=== PATIENT | female | born 1930 | race Caucasian/White ===

== ENCOUNTER → 2016-09-18 | Outpatient (CLI) | payer OTHER ==
[~2016-09-18] MED LIST: ACT300 PO; CEPH-571 PO; FLV1 PO; FRRS300 PO; FRS/40 PO; FURO40TA3 PO; KFL500 PO; LNX125 PO; POTA10TA30 PO; PROB1CHW4 PO; PRT40 PO; QSTP PO; TPRSR/25 PO; TPRSR25 PO; VTMB12 PO
[2016-09-18 12:44] LABS: BLOOD UREA NITROGEN 33 mg/dl (7-18); BUN/CREATININE RATIO 23.5 (10-20); CARBON DIOXIDE 30 mmol/L (21-32); CHLORIDE 101 mmol/L (98-107); GLUCOSE 100 mg/dl (70-99); POTASSIUM 3.4 mmol/L (3.5-5.1); SODIUM 141 mmol/L (136-145)
== END | disposition home or self-care (01) ==
LOC: C.LABPVFM 09:25
PROVIDERS: ATTEND Internal Medicine
DX: I50.9 Heart failure, unspecified (principal)

== ENCOUNTER → 2016-09-22 | Outpatient (CLI) | payer OTHER ==
[2016-09-22 17:50] LABS: ALT/SGPT 21 U/L (12-78); AST/SGOT 31 U/L (15-37); BLOOD UREA NITROGEN 28 mg/dl (7-18); BUN/CREATININE RATIO 21.2 (10-20); CALCIUM 8.4 mg/dl (8.5-10.1); CARBON DIOXIDE 30 mmol/L (21-32); CHLORIDE 103 mmol/L (98-107); GLUCOSE 132 mg/dl (70-99); SODIUM 141 mmol/L (136-145)
[2016-09-22 18:01] LABS: ALB/GLOB RATIO 0.5 (0.9-2); ALKALINE PHOSPHATASE 88 U/L (45-117); THYROID STIMULATING HORMONE 0.723 uIu/ml (0.300-4.500)
== END | disposition home or self-care (01) ==
LOC: C.LABPVFM 11:01
PROVIDERS: ATTEND Nurse Practitioner
DX: I50.9 Heart failure, unspecified (principal); N28.9 Disorder of kidney and ureter, unspecified; R94.6 Abnormal results of thyroid function studies

== ENCOUNTER → 2016-10-19 | Outpatient (CLI) | payer OTHER ==
[2016-10-19 17:58] LABS: BASO % 0.2 %; BASO ABS # 0.02 K/uL (0-0.2); COMPLETE YES; EOS % 1.9 %; IG% 0.3 %; LYMPH % 39.2 %; LYMPH ABS # 4.27 K/uL (1.2-3.4); MEAN CELL VOLUME 92.8 fL (80-100); MEAN CORPUSCULAR HEMOGLOBIN 30.8 pg (25-34); MEAN CORPUSCULAR HGB CONC 33.2 g/dl (32-36); MEAN PLATELET VOLUME 12.6 fL (7.4-10.4); MONO % 16.9 %; NEUT % 41.5 %; PLATELET COUNT 205 K/uL (130-400); RED BLOOD COUNT 4.42 M/uL (4.2-5.4); WHITE BLOOD COUNT 10.88 K/uL (4.8-10.8)
[2016-10-19 18:26] LABS: ALT/SGPT 15 U/L (12-78); BLOOD UREA NITROGEN 27 mg/dl (7-18); BUN/CREATININE RATIO 22.3 (10-20); CALCIUM 9.1 mg/dl (8.5-10.1); CARBON DIOXIDE 32 mmol/L (21-32); CHLORIDE 100 mmol/L (98-107); GLUCOSE 94 mg/dl (70-99); POTASSIUM 3.6 mmol/L (3.5-5.1); SODIUM 141 mmol/L (136-145)
[2016-10-19 18:29] LABS: ALB/GLOB RATIO 0.6 (0.9-2); ALKALINE PHOSPHATASE 98 U/L (45-117); AST/SGOT 25 U/L (15-37)
== END | disposition home or self-care (01) ==
LOC: C.LABPVFM 15:42
PROVIDERS: ATTEND Nurse Practitioner
DX: I10 Essential (primary) hypertension (principal); N28.9 Disorder of kidney and ureter, unspecified; D64.9 Anemia, unspecified

== ENCOUNTER → 2017-02-20 | Outpatient (CLI) | payer OTHER ==
[2017-02-20 18:17] LABS: ALT/SGPT 16 U/L (12-78); AST/SGOT 23 U/L (15-37); BLOOD UREA NITROGEN 28 mg/dl (7-18); BUN/CREATININE RATIO 21.9 (10-20); CALCIUM 8.8 mg/dl (8.5-10.1); CARBON DIOXIDE 29 mmol/L (21-32); CHLORIDE 105 mmol/L (98-107); GLUCOSE 89 mg/dl (70-99); POTASSIUM 3.7 mmol/L (3.5-5.1); SODIUM 142 mmol/L (136-145)
[2017-02-20 18:20] LABS: ALB/GLOB RATIO 0.6 (0.9-2); ALKALINE PHOSPHATASE 120 U/L (45-117)
== END | disposition home or self-care (01) ==
LOC: C.LABPVFM 13:19
PROVIDERS: ATTEND Nurse Practitioner
DX: I10 Essential (primary) hypertension (principal); I50.9 Heart failure, unspecified; E87.6 Hypokalemia

== ENCOUNTER → 2017-02-26 | Outpatient (CLI) | payer OTHER ==
[2017-02-27 16:27] LABS: ALBUMIN 3.7 G/DL (3.8-4.8); GAMMA GLOBULIN 2.6 G/DL (0.8-1.7); TOTAL PROTEIN 8.3 G/DL (6.2-8.3)
== END | disposition home or self-care (01) ==
LOC: C.LABPVFM 09:35
PROVIDERS: ATTEND Nurse Practitioner
DX: R77.9 Abnormality of plasma protein, unspecified (principal)

== ENCOUNTER → 2017-03-12 | Outpatient (CLI) | payer OTHER | END | disposition home or self-care (01) | LOC: C.LABPVFM 09:34 | PROVIDERS: ATTEND Internal Medicine Cardiovascular Disease | DX: E78.5 Hyperlipidemia, unspecified (principal) ==

== ENCOUNTER 2017-04-10 11:41 | Inpatient (IN) | payer OTHER ==
[~2017-04-10] VITALS: Ht 160 cm; Wt 61.2 kg
[~2017-04-10 11:41] MED LIST changes: -ACT300 PO; -CEPH-571 PO; -FRS/40 PO; -KFL500 PO; -POTA10TA30 PO; -TPRSR/25 PO
[2017-04-10] MEDS ORDERED: FRS/40 PO (12:38)
[2017-04-10] MEDS ORDERED: POTA10TA30 PO (12:38)
[2017-04-10] MEDS ORDERED: ACT300 PO (12:38)
[2017-04-10] MEDS ORDERED: SODIUM CHLORIDE 0.9% 500ML 500 ML IV STA (13:12)
[2017-04-10] MEDS ORDERED: LEVALBUTEROL 1.25MG/3ML NEB INH STA (13:12)
[2017-04-10] MEDS ORDERED: LEVALBUTEROL 1.25MG/0.5ML NEB INH ONE (13:17)
[2017-04-10 13:34] LABS: BASO % 0.2 %; BASO ABS # 0.02 K/uL (0-0.2); COMPLETE YES; EOS % 0.6 %; HEMATOCRIT 43.1 % (37-47); IG% 0.2 %; INR 1.2 (0.9-1.1); LYMPH % 17.2 %; LYMPH ABS # 1.45 K/uL (1.2-3.4); MEAN CELL VOLUME 105.9 fL (80-100); MEAN CORPUSCULAR HEMOGLOBIN 33.2 pg (25-34); MEAN CORPUSCULAR HGB CONC 31.3 g/dl (32-36); MEAN PLATELET VOLUME 13.2 fL (7.4-10.4); MONO % 19.4 %; NEUT % 62.4 %; PLATELET COUNT 156 K/uL (130-400); PROTHROMBIN TIME (PATIENT) 12.5 SECONDS (9.0-12.0); RED BLOOD COUNT 4.07 M/uL (4.2-5.4); WHITE BLOOD COUNT 8.41 K/uL (4.8-10.8)
--- NOTE | 2017-04-10 13:39 | DIAGNOSTIC IMAGING REPORT ---
CHEST ONE VIEW PORTABLE CLINICAL HISTORY: Slurred speech. Altered mental status. Dyspnea. COMPARISON STUDY: Chest radiograph July 19, 2016. FINDINGS: The patient is rotated. No pneumothorax is present. There are small bilateral pleural effusions. 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 Mild cardiomegaly is unchanged. Interstitial thickening is noted. There is a 2.7 cm nodular opacity projecting over the right lung apex which may be artifactual. IMPRESSION: 1. Interstitial thickening which suggests pulmonary edema. An infectious process could appear similar but is considered less likely. 2. Small bilateral pleural effusions. 3. 2.7 cm nodular opacity projecting over the right upper lung. This is probably artifactual although airspace disease could appear similar. Radiographic follow-up to ensure resolution is recommended. Electronically signed by: Darshan Rollins M.D. 04/10/2017 1:37 PM Dictated Date/Time: 04/10/2017 1:35 PM
[2017-04-10 13:45] LABS: BUN/CREATININE RATIO 25.1 (10-20); CALCIUM 9.1 mg/dl (8.5-10.1); CREATININE 1.5 mg/dl (0.60-1.20); POTASSIUM 3.8 mmol/L (3.5-5.1)
[2017-04-10] MEDS ORDERED: VTMB12 PO (13:48)
--- NOTE | 2017-04-10 13:56 | DIAGNOSTIC IMAGING REPORT ---
HEAD CT NONCONTRAST CT DOSE: 1715.57 mGycm HISTORY: Pt c/o slurred speech TECHNIQUE: Multiaxial CT images of the head were performed without the use of intravenous contrast. Automated exposure control was utilized for this study. A dose lowering technique was utilized adhering to the principles of ALARA. Comparison: Head CT 12/10/2013. Findings: The mastoid air cells are clear. Near-complete opacification and calcifications within the left frontal sinus and left anterior ethmoid air cells. This is similar to the prior study. The calvarium and skull base are intact. There is no mass, hematoma, midline shift, acute infarct. White matter hypodensity is nonspecific but suggestive of microvascular ischemic change. The ventricles and sulci demonstrate mild age-related involutional changes. Impression: No significant change compared to the prior study. No acute intracranial abnormality. Chronic paranasal sinus disease as described above. Electronically signed by: Alejandro Carey M.D. 04/10/2017 1:55 PM Dictated Date/Time: 04/10/2017 1:51 PM
[2017-04-10] MEDS: METOPROLOL TARTRATE 1 MG/ML VIAL IV STA ×2 (13:57→14:40)
[2017-04-10 14:00] LABS: CKMB/CK RATIO 1.6 (0-3.0); THYROID STIMULATING HORMONE 0.954 uIu/ml (0.300-4.500)
--- NOTE | 2017-04-10 14:03 | EMERGENCY ROOM VISIT NOTE ---
History Report prepared by Leandra: Zhao Servin Under the Supervision of: Dr. Jose Marks M.D. First contact with patient: 12:29 Chief Complaint: WEAKNESS Stated Complaint: ALTERED MENTAL STATUS, DYSPNEA Nursing Triage Summary: pt arrives via EMS spouse reports to EMS that pt awoke early this AM at 0600 more dissoriented than normal and slurred speech. took a nap and when awakening again speech was clear, but remained dissoriented . Pt reports to spouse that she does not know where she is , spouse reports this is normal for her but intermittently and this has not cleared up today. History of Present Illness The patient is a 86 year old female who presents to the Emergency Room with complaints of persistent generalized weakness beginning a few days ago. Per , the patient appeared more disoriented than normal upon waking up this morning. He notes that she may have had some slurred speech for the past several days as well. He states that she took a nap after waking up today, and her speech slur seemed to improve after waking up. The patient's states the patient has not been eating well recently. He states that the patient has not been able to urinate much without using Lasix. He states that her urine appears "brown" without Lasix. The patient's states that the patient's stool has appeared "black" as well, she has had abdominal pain, and she was short of breath yesterday. The patient is supposed to wear supplemental oxygen at home, but often does not. She currently denies any shortness of breath, or abdominal pain. She was previously on Coumadin for A-fib, but stopped in February 2016 due to a GI bleed. Source of History: patient, spouse/significant other () Onset: A few days ago Position: other (generalized) Quality: other (weakness) Timing: other (persistent) Associated Symptoms: + SOB (yesterday, resolved), + abdominal pain ( yesterday, resolved), + urinary symptoms ("brown" urine without Lasix) Note: Additional symptoms: resolved speech slur, "black" stool. Review of Systems See HPI for pertinent positives & negatives. A total of 10 systems reviewed and were otherwise negative. Past Medical & Surgical Medical Problems: (1) Anticoagulated on Coumadin (2) Arthritis (3) Atrial fibrillation (4) Atrial fibrillation with RVR (5) Benign Hypertension (6) Clostridium difficile infection (7) Cva (8) GI bleed (9) Healthcare-associated pneumonia (10) Hypertension (11) Jaundice (12) Rectal bleed Surgical Problems: (1) History of appendectomy (2) History of cholecystectomy (3) History of hysterectomy (4) History of splenectomy Family History No pertinent family history Social History Smoking Status: Never Smoker Drug Use: none Marital Status: Housing Status: lives with family Occupation Status: retired Current/Historical Medications Scheduled Cyanocobalamin (Vitamin B-12), 1,000 MCG PO DAILY Digoxin (Digoxin), 0.125 MG PO Q2D@1600 Ferrous Sulfate (Ferrous Sulfate), 325 MG PO QAM Folic Acid (Folic Acid), 1 MG PO QAM Furosemide (Lasix), 40 MG PO DAILY Metoprolol Succinate (Metoprolol Succinate ER), 25 MG PO BID Pantoprazole (Pantoprazole Sodium), 40 MG PO QAM Potassium Chloride (Potassium Chloride Cr), 10 MEQ PO DAILY Probiotic Product (Acidophilus), 1 TAB PO DAILY Ursodiol (Ursodiol), 300 MG PO BID Allergies Coded Allergies: Penicillins (Verified Allergy, Mild, HIVES, 06/27/16) Tetanus Toxoid (Verified Allergy, Mild, FEVR, N/V, 06/27/16) Physical Exam Vital Signs Date Time Temp Pulse Resp B/P (MAP) Pulse Ox O2 Delivery O2 Flow Rate FiO2 04/10/17 16:30 36.5 118 22 128/88 (101) 96 Nasal Cannula 2.0 04/10/17 16:16 Room Air 04/10/17 15:32 100 24 132/83 95 Nasal Cannula 2.0 04/10/17 14:40 115 118/101 04/10/17 14:20 118 24 137/101 04/10/17 14:07 100 24 128/88 95 Nasal Cannula 2.0 04/10/17 14:05 105 24 114/83 96 Nasal Cannula 2.0 04/10/17 13:57 130 28 142/104 95 Nasal Cannula 2.0 04/10/17 13:23 116 24 144/110 98 04/10/17 12:40 97 Nasal Cannula 2.0 04/10/17 11:55 124 04/10/17 11:48 36.7 128 28 125/91 88 Room Air Physical Exam GENERAL: Patient is a healthy-appearing well-nourished female HEAD: Normocephalic atraumatic EYES: Ocular movements intact pupils equal and react to light OROPHARYNX mucous membranes are moist no exudates present no erythema or edema present NECK: Supple no nuchal rigidity CHEST: Good equal expansion LUNGS: Clear and equal to auscultation CARDIAC: Normal S1 and S2 ABDOMEN: Soft nontender no guarding BACK: No CVA tenderness EXTREMITIES: No pain upon palpation normal muscle strength in all groups no clubbing cyanosis or edema NEURO: Patient is following commands and answering questions appropriately. Alert and oriented x3 Cranial Nerves 2-12 grossly intact Medical Decision & Procedures ER Provider Diagnostic Interpretation: Radiology results as stated below per my review and radiologist interpretation: CHEST ONE VIEW PORTABLE FINDINGS: The patient is rotated. No pneumothorax is present. There are small bilateral pleural effusions. 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 Mild cardiomegaly is unchanged. Interstitial thickening is noted. There is a 2.7 cm nodular opacity projecting over the right lung apex which may be artifactual. IMPRESSION: 1. Interstitial thickening which suggests pulmonary edema. An infectious process could appear similar but is considered less likely. 2. Small bilateral pleural effusions. 3. 2.7 cm nodular opacity projecting over the right upper lung. This is probably artifactual although airspace disease could appear similar. Radiographic follow-up to ensure resolution is recommended. Electronically signed by: Darshan Rollins M.D. HEAD CT NONCONTRAST Findings: The mastoid air cells are clear. Near-complete opacification and calcifications within the left frontal sinus and left anterior ethmoid air cells. This is similar to the prior study. The calvarium and skull base are intact. There is no mass, hematoma, midline shift, acute infarct. White matter hypodensity is nonspecific but suggestive of microvascular ischemic change. The ventricles and sulci demonstrate mild age-related involutional changes. Impression: No significant change compared to the prior study. No acute intracranial abnormality. Chronic paranasal sinus disease as described above. Electronically signed by: Alejandro Carey M.D. Laboratory Results 04/10/17 13:00 Red Blood Count 4.07, Mean Corpuscular Volume 105.9, Mean Corpuscular Hemoglobin 33.2, Mean Corpuscular Hemoglobin Concent 31.3, Mean Platelet Volume 13.2, Neutrophils (%) (Auto) 62.4, Lymphocytes (%) (Auto) 17.2, Monocytes (%) ( Auto) 19.4, Eosinophils (%) (Auto) 0.6, Basophils (%) (Auto) 0.2, Neutrophils # (Auto) 5.24, Lymphocytes # (Auto) 1.45, Monocytes # (Auto) 1.63, Eosinophils # ( Auto) 0.05, Basophils # (Auto) 0.02 04/10/17 13:00 Test 04/10/17 13:00 04/10/17 13:08 04/10/17 13:58 04/10/17 14:44 White Blood Count 8.41 K/uL (4.8-10.8) Red Blood Count 4.07 M/uL (4.2-5.4) Hemoglobin 13.5 g/dL (12.0-16.0) Hematocrit 43.1 % (37-47) Mean Corpuscular Volume 105.9 fL (80-100) Mean Corpuscular Hemoglobin 33.2 pg (25-34) Mean Corpuscular Hemoglobin Concent 31.3 g/dl (32-36) Platelet Count 156 K/uL (130-400) Mean Platelet Volume 13.2 fL (7.4-10.4) Neutrophils (%) (Auto) 62.4 % Lymphocytes (%) (Auto) 17.2 % Monocytes (%) (Auto) 19.4 % Eosinophils (%) (Auto) 0.6 % Basophils (%) (Auto) 0.2 % Neutrophils # (Auto) 5.24 K/uL (1.4-6.5) Lymphocytes # (Auto) 1.45 K/uL (1.2-3.4) Monocytes # (Auto) 1.63 K/uL (0.11-0.59) Eosinophils # (Auto) 0.05 K/uL (0-0.5) Basophils # (Auto) 0.02 K/uL (0-0.2) RDW Standard Deviation 60.9 fL (36.4-46.3) RDW Coefficient of Variation 16.2 % (11.5-14.5) Immature Granulocyte % (Auto) 0.2 % Immature Granulocyte # (Auto) 0.02 K/uL (0.00-0.02) Prothrombin Time 12.5 SECONDS (9.0-12.0) Prothromb Time International Ratio 1.2 (0.9-1.1) Anion Gap 4.0 mmol/L (3-11) Est Creatinine Clear Calc Drug Dose 21.8 ml/min Estimated GFR () 35.9 Estimated GFR (Non- 31.0 BUN/Creatinine Ratio 25.1 (10-20) Calcium Level 9.1 mg/dl (8.5-10.1) Magnesium Level 2.6 mg/dl (1.8-2.4) Total Bilirubin 1.6 mg/dl (0.2-1) Direct Bilirubin 0.4 mg/dl (0-0.2) Aspartate Amino Transf (AST/SGOT) 28 U/L (15-37) Alanine Aminotransferase (ALT/SGPT) 19 U/L (12-78) Alkaline Phosphatase 101 U/L (45-117) Total Creatine Kinase 56 U/L (26-192) Creatine Kinase MB 0.9 ng/ml (0.5-3.6) Creatine Kinase MB Ratio 1.6 (0-3.0) Troponin I 0.021 ng/ml (0-0.045) Total Protein 8.5 gm/dl (6.4-8.2) Albumin 3.2 gm/dl (3.4-5.0) Thyroid Stimulating Hormone (TSH) 0.954 uIu/ml (0.300-4.500) Bedside Glucose 129 mg/dl (70-90) Digoxin Level 0.6 ng/ml (0.8-2.0) Urine Color YELLOW Urine Appearance CLEAR (CLEAR) Urine pH 5.5 (4.5-7.5) Urine Specific Colbert 1.017 (1.000-1.030) Urine Protein 2+ (NEG) Urine Glucose (UA) NEG (NEG) Urine Ketones NEG (NEG) Urine Occult Blood 1+ (NEG) Urine Nitrite NEG (NEG) Urine Bilirubin NEG (NEG) Urine Urobilinogen NEG (NEG) Urine Leukocyte Esterase MODERATE (NEG) Urine WBC (Auto) 10-30 /hpf (0-5) Urine RBC (Auto) 0-4 /hpf (0-4) Urine Hyaline Casts (Auto) 10-30 /lpf (0-5) Urine Epithelial Cells (Auto) >30 /lpf (0-5) Urine Bacteria (Auto) 1+ (NEG) Labs reviewed by ED physician. Medications Administered Medications (Trade) Dose Ordered Sig/Michael Route Start Time Stop Time Status Last Admin Dose Admin Sodium Chloride 500 ml @ 999 mls/hr Q31M STAT IV 04/10/17 13:12 04/10/17 13:42 DC 04/10/17 13:20 999 MLS/HR Levalbuterol (Xopenex 1.25MG/ 0.5ML Neb) 1.25 mg STK-MED ONCE INH 04/10/17 13:17 04/10/17 13:18 DC 04/10/17 13:20 1.25 MG Metoprolol Tartrate (Lopressor Iv) 15 mg NOW STAT IV 04/10/17 13:50 04/10/17 13:51 DC 04/10/17 14:40 15 MG Furosemide (Lasix Inj) 40 mg NOW STAT IV 04/10/17 14:10 04/10/17 14:12 DC 04/10/17 14:38 40 MG ECG Indication: weakness Rate (beats per minute): 125 Rhythm: atrial fibrillation (with RVR) Findings: no acute ischemic change Comparison ECG Date: Jun 27, 2016 Change: A fib replaced sinus bradycardia. ED Course 1306: Past medical records reviewed. The patient was evaluated in room C7. A complete history and physical examination was performed. 1312: Ordered Xopenex 1.25 mg/3 mL Neb 1.25 mg INH, Sodium Chloride 500 ml @ 999 mls/hr IV. 1350: Ordered Lopressor 15 mg IV. 1410: Ordered Lasix Inj 40 mg IV. 1430: Upon reexamination the patient is resting. I discussed results and treatment plan with the patient. She verbalizes agreement and understanding. I spoke with Dr. Fields from the [facility] Hospitalist Service. The patient will be evaluated for further management. Medical Decision Differential diagnosis: Etiologies such as metabolic, infection, hypo/hyperglycemia, electrolyte abnormalities, cardiac sources, intracerebral event, toxicologic, neurologic, as well as others were entertained. This is an 86-year-old female who presents emergency department complaining of altered mental status. The patient. Today where she was having slurred speech as well as weakness however this quickly resolved. Upon arrival to emergency department the patient isn't in atrial fibrillation. She has not been in atrial fibrillation since 2010. The patient had recently been taken off anticoagulation due to a GI bleed. She was given Lopressor as well as Lasix in the emergency department to better control her heart rate. I did discuss the case with the hospitalist service who agreed to admit the patient. Both patient and were in agreement with the treatment plan. Consults Time Called: 1411 Consulting Physician: Dr. Fields -[facility] Returned Call: [phone] I discussed the patient's case with Dr. Fields, he has agreed to evaluate the patient for further management and care. Impression Primary Impression: Atrial fibrillation Additional Impressions: TIA (transient ischemic attack) Pulmonary edema Critical Care -I have personally spent greater than 30 minutes of critical care time in the direct management of this patient. This includes bedside care, interpretation of diagnostic studies, and testing, discussion with consultants, patient, and family members, and other required patient management activities. This 30 minutes is in excess of all separately billable procedures. Scribe Attestation The scribe's documentation has been prepared under my direction and personally reviewed by me in its entirety. I confirm that the note above accurately reflects all work, treatment, procedures, and medical decision making performed by me. Departure Information Dispostion Being Evaluated By Hospitalist Referrals Shelly Ordoñez, C.R.N.P (PCP) Patient Instructions My [facility] Problem Qualifiers Primary Impression: Atrial fibrillation Atrial fibrillation type: unspecified Qualified Codes: I48.91 - Unspecified atrial fibrillation Additional Impressions: TIA (transient ischemic attack) Transient cerebral ischemia type: unspecified Qualified Codes: G45.9 - Transient cerebral ischemic attack, unspecified Pulmonary edema Chronicity: chronic Qualified Codes: J81.1 - Chronic pulmonary edema
[2017-04-10] MEDS ORDERED: FUROSEMIDE 40 MG/4 ML VIAL IV STA (14:10)
[2017-04-10 15:34] LABS: URINE APPEARANCE CLEAR (CLEAR); URINE BILIRUBIN NEG (NEG); URINE COLOR YELLOW; URINE EPITHELIAL CELL AUTO >30 /lpf (0-5); URINE NITRITE NEG (NEG); URINE PH 5.5 (4.5-7.5); URINE SPECIFIC GRAVITY 1.017 (1.000-1.030); UROBILINOGEN NEG (NEG)
[2017-04-10 15:37] LABS: MANUAL MICROSCOPIC REQUIRED? NO; REVIEW REQ? NO
[2017-04-10 16:16] VITALS: Ht 160 cm; Wt 61.2 kg
[2017-04-10 16:30] VITALS: BP 128/88; PULSE 118; TEMP 36.5; O2SAT 96
[2017-04-10] MEDS ORDERED: ONDANSETRON INJ 2 MG/ML 2 ML VIAL IV PRN (17:00)
[2017-04-10] MEDS ORDERED: ALUMINUM/MAGNESIUM/SIMETH (MAALOX MAX) 30 ML UDC PO PRN (17:00)
[2017-04-10] MEDS ORDERED: METOPROLOL TARTRATE 1 MG/ML VIAL IV PRN (17:00)
[2017-04-10] MEDS ORDERED: ACETAMINOPHEN 325 MG TAB PO PRN (17:00)
[2017-04-10] MEDS ORDERED: POLYETHYLENE (MIRALAX) 17 GM PACK PO PRN (17:00)
[2017-04-10] MEDS ORDERED: MAGNESIUM HYDROXIDE SUSP 30 ML UDC PO PRN (17:00)
--- NOTE | 2017-04-10 17:50 | History and Physical ---
History & Physical Date & Time of Service: Apr 10, 2017 at 17:17 Chief Complaint: Altered Mental Status, Dyspnea Primary Care Physician: Shelly Ordoñez C.R.N.P History of Present Illness Source: patient, clinic records, hospital records This is an 86 y/o female with a history of a-fib, diastolic CHF, HTN, HLD, CKD stage III, anemia of chronic disease, and Parkinson's who presented to the ED on 04/10 with weakness and confusion. The patient is completely disoriented during my examination and alone at beside. Attempted to call but no response. Unable to obtain reliable ROS from patient due to mental status. She denies any complaints currently. Per ED physician, patient had been complaining of persistent generalized weakness for the last few days, and the had noted worsening disorientation/confusion above baseline. The patient may have had some slurred speech that appeared to have resolved. The patient is reportedly non-complaint with her supplemental oxygen at home and possibly with her medications as well. Past Medical/Surgical History Medical Problems: (1) Arthritis Status: Chronic (2) Atrial fibrillation Status: Chronic (3) Benign Hypertension Status: Chronic (4) Clostridium difficile infection Status: Chronic (5) Cva Status: Chronic (6) Hypertension Status: Chronic Surgical Problems: (1) History of appendectomy Status: Resolved (2) History of cholecystectomy Status: Resolved (3) History of hysterectomy Status: Resolved (4) History of splenectomy Status: Resolved Family History No pertinent family history Unable to obtain family history from patient due to mental status. Social History Unable to obtain social history from patient due to mental status. Smoking Status: Never Smoker Drug Use: none Marital Status: Housing status: lives with significant other Occupational Status: retired Immunizations History of Influenza Vaccine: No Influenza Vaccine Date: Jul 25, 2007 History of Tetanus Vaccine?: Unknown History of Pneumococcal: Yes Pneumococcal Date: Jun 02, 2011 History of Hepatitis B Vaccine: Unknown Multi-Drug Resistant Organisms History of MDRO: No Allergies Coded Allergies: Penicillins (Verified Allergy, Mild, HIVES, 06/27/16) Tetanus Toxoid (Verified Allergy, Mild, FEVR, N/V, 06/27/16) Home Medications Scheduled Cyanocobalamin (Vitamin B-12), 1,000 MCG PO DAILY Digoxin (Digoxin), 0.125 MG PO Q2D@1600 Ferrous Sulfate (Ferrous Sulfate), 325 MG PO QAM Folic Acid (Folic Acid), 1 MG PO QAM Furosemide (Lasix), 40 MG PO DAILY Metoprolol Succinate (Metoprolol Succinate ER), 25 MG PO BID Pantoprazole (Pantoprazole Sodium), 40 MG PO QAM Potassium Chloride (Potassium Chloride Cr), 10 MEQ PO DAILY Probiotic Product (Acidophilus), 1 TAB PO DAILY Ursodiol (Ursodiol), 300 MG PO BID Review of Systems Unable to obtain reliable ROS from patient due to mental status. Physical Exam Vital Signs Date Time Temp Pulse Resp B/P (MAP) Pulse Ox O2 Delivery O2 Flow Rate FiO2 04/10/17 16:16 Room Air 04/10/17 15:32 100 24 132/83 95 Nasal Cannula 2.0 04/10/17 14:40 115 118/101 04/10/17 14:20 118 24 137/101 04/10/17 14:07 100 24 128/88 95 Nasal Cannula 2.0 04/10/17 14:05 105 24 114/83 96 Nasal Cannula 2.0 04/10/17 13:57 130 28 142/104 95 Nasal Cannula 2.0 04/10/17 13:23 116 24 144/110 98 04/10/17 12:40 97 Nasal Cannula 2.0 04/10/17 11:55 124 04/10/17 11:48 36.7 128 28 125/91 88 Room Air General appearance: +Lethargic. Well-developed, well-nourished, no apparent distress Head: Normocephalic, atraumatic Eyes: +Exam limited by pt condition/cooperation. Normal inspection, PERRL, EOMI ENT: Normal ENT inspection, hearing grossly normal, pharynx normal Neck: Supple, no JVD, trachea midline Respiratory/Chest: +Crackles bilaterally from bases to mid lung. Normal breath sounds, no respiratory distress Cardiovascular: +Irregularly irregular, tachycardic. No gallop, no murmur Abdomen/GI: Normal bowel sounds, non-tender, soft Extremities/Musculoskeletal: +Trace pitting edema. Normal inspection, no calf tenderness Neurological/Psych: +Disoriented x 3. Able to tell me her name but told me an incorrect day and year. Pt falling asleep during my exam but easily rousable. Normal mood/affect, oriented to name only Skin: Normal color, warm/dry, no rash Diagnostics Laboratory Results Results Past 24 Hours Test 04/10/17 13:00 04/10/17 13:08 04/10/17 13:58 04/10/17 14:44 Range/Units White Blood Count 8.41 4.8-10.8 K/uL Red Blood Count 4.07 4.2-5.4 M/uL Hemoglobin 13.5 12.0-16.0 g/dL Hematocrit 43.1 37-47 % Mean Corpuscular Volume 105.9 80-100 fL Mean Corpuscular Hemoglobin 33.2 25-34 pg Mean Corpuscular Hemoglobin Concent 31.3 32-36 g/dl Platelet Count 156 130-400 K/uL Mean Platelet Volume 13.2 7.4-10.4 fL Neutrophils (%) (Auto) 62.4 % Lymphocytes (%) (Auto) 17.2 % Monocytes (%) (Auto) 19.4 % Eosinophils (%) (Auto) 0.6 % Basophils (%) (Auto) 0.2 % Neutrophils # (Auto) 5.24 1.4-6.5 K/uL Lymphocytes # (Auto) 1.45 1.2-3.4 K/uL Monocytes # (Auto) 1.63 0.11-0.59 K/uL Eosinophils # (Auto) 0.05 0-0.5 K/uL Basophils # (Auto) 0.02 0-0.2 K/uL RDW Standard Deviation 60.9 36.4-46.3 fL RDW Coefficient of Variation 16.2 11.5-14.5 % Immature Granulocyte % (Auto) 0.2 % Immature Granulocyte # (Auto) 0.02 0.00-0.02 K/uL Prothrombin Time 12.5 9.0-12.0 SECONDS Prothromb Time International Ratio 1.2 0.9-1.1 Sodium Level 141 136-145 mmol/L Potassium Level 3.8 3.5-5.1 mmol/L Chloride Level 104 98-107 mmol/L Carbon Dioxide Level 33 21-32 mmol/L Anion Gap 4.0 3-11 mmol/L Blood Urea Nitrogen 38 7-18 mg/dl Creatinine 1.50 0.60-1.20 mg/dl Est Creatinine Clear Calc Drug Dose 21.8 ml/min Estimated GFR () 35.9 Estimated GFR (Non- 31.0 BUN/Creatinine Ratio 25.1 10-20 Random Glucose 127 70-99 mg/dl Calcium Level 9.1 8.5-10.1 mg/dl Total Bilirubin 1.6 0.2-1 mg/dl Direct Bilirubin 0.4 0-0.2 mg/dl Aspartate Amino Transf (AST/SGOT) 28 15-37 U/L Alanine Aminotransferase (ALT/SGPT) 19 12-78 U/L Alkaline Phosphatase 101 45-117 U/L Total Creatine Kinase 56 26-192 U/L Creatine Kinase MB 0.9 0.5-3.6 ng/ml Creatine Kinase MB Ratio 1.6 0-3.0 Troponin I 0.021 0-0.045 ng/ml Total Protein 8.5 6.4-8.2 gm/dl Albumin 3.2 3.4-5.0 gm/dl Thyroid Stimulating Hormone (TSH) 0.954 0.300-4.500 uIu/ml Bedside Glucose 129 70-90 mg/dl Digoxin Level 0.6 0.8-2.0 ng/ml Urine Color YELLOW Urine Appearance CLEAR CLEAR Urine pH 5.5 4.5-7.5 Urine Specific Cum[place] 1.017 1.000-1.030 Urine Protein 2+ NEG Urine Glucose (UA) NEG NEG Urine Ketones NEG NEG Urine Occult Blood 1+ NEG Urine Nitrite NEG NEG Urine Bilirubin NEG NEG Urine Urobilinogen NEG NEG Urine Leukocyte Esterase MODERATE NEG Urine WBC (Auto) 10-30 0-5 /hpf Urine RBC (Auto) 0-4 0-4 /hpf Urine Hyaline Casts (Auto) 10-30 0-5 /lpf Urine Epithelial Cells (Auto) >30 0-5 /lpf Urine Bacteria (Auto) 1+ NEG Test 04/10/17 16:53 Range/Units Diagnostic Radiology Reviewed the following studies and agree with interpretation as follows: Patient Name: PHYLLIS FRANCO Unit Number: [id number] Dictated: 04/10/171350 Transcribed: 04/10/171350 TATIANA Printed Date/Time: [~ rep prt dt]/[~ rep prt tm] [~ rep ct labl] - [~ rep ct ivnm] [facility] [place] [address] Dictated: 04/10/171350 Transcribed: 04/10/17 1351 PAJ Printed Date/Time: [~ rep prt dt]/[~ rep prt tm] [~ rep ct labl] - [~ rep ct ivnm] Patient: PHYLLIS FRANCO Address1: [address] Rec: [id number] Address2: [address] Acct ID: [id number] [facility] Zip: [place] [address] Date: 1930 Sex: F Room/Bed: Ref Phy: Shelly Ordoñez C.R.NIhsan SC: DANIEL Att Phy: Report #: [id number] Linnea Phy: Shelly Ordoñez C.R.N.P Test: HWO Admit Phy: It Project Manager: TITUS Interpreting Phy: Alejandro Carey MD Diagnosis: ALTERED MENTAL STATUS, DYSPNEA Ordering Phy: Jose Marks MD Service Date: 04/10/17 Admit Date: 04/10/17 MNE: [id number] CONF: DICTATED BY: Alejandro Carey M.D.]] CC: Jose Marks MD Maurer, Candace, C.R.NLeslieP Endcc: [~ rep ct add3]] HEAD CT NONCONTRAST CT DOSE: 1715.57 mGycm HISTORY: Pt c/o slurred speech TECHNIQUE: Multiaxial CT images of the head were performed without the use of intravenous contrast. Automated exposure control was utilized for this study. A dose lowering technique was utilized adhering to the principles of ALARA. Comparison: Head CT 12/10/2013. Findings: The mastoid air cells are clear. Near-complete opacification and calcifications within the left frontal sinus and left anterior ethmoid air cells. This is similar to the prior study. The calvarium and skull base are intact. There is no mass, hematoma, midline shift, acute infarct. White matter hypodensity is nonspecific but suggestive of microvascular ischemic change. The ventricles and sulci demonstrate mild age-related involutional changes. Impression: No significant change compared to the prior study. No acute intracranial abnormality. Chronic paranasal sinus disease as described above. Electronically signed by: Alejandro Carey M.D. 04/10/2017 1:55 PM Dictated Date/Time: 04/10/2017 1:51 PM The status of this report is Signed. Draft = Not yet reviewed or approved by Radiologist. Signed = Reviewed and approved by Radiologist. <AttendingPhy></AttendingPhy> <FamilyPhy>Shelly Ordoñez C.R.N.P</FamilyPhy> < PrimaryPhy>Shelly Ordoñez C.R.N.P</PrimaryPhy> <UnitNumber>[id number]</ UnitNumber> <VisitNumber>[id number]</VisitNumber> <PatientName>PHYLLIS FRANCO</ PatientName> <DateOfBirth>1930</DateOfBirth> <Location>[facility]</Location> < ServiceDate>04/10/17</ServiceDate> <MNE>ESINDI</MNE> <OrderingPhy>Jose Marks MD</OrderingPhy> <OrderingPhyMNE>f rep ord dr cruz</OrderingPhyMNE> < DictatingPhyMNE>f rep dict dr cruz</DictatingPhyMNE> <CCListMNE>f rep ct mne</ CCListMNE> <AdmittingPhyMNE>f pt admit dr cruz</AdmittingPhyMNE> <AttendingPhyMNE >f pt attend dr cruz</AttendingPhyMNE> <ConsultingPhyMNE>f pt consult dr cruz</ConsultingPhyMNE> <FamilyPhyMNE>f pt fam dr cruz</FamilyPhyMNE> <OtherPhyMNE>f pt other dr cruz</OtherPhyMNE> < PrimaryPhyMNE>f pt prim care dr cruz</PrimaryPhyMNE> <ReferringPhyMNE>f pt referring dr cruz</ReferringPhyMNE> Patient Name: PHYLLIS FRANCO Unit Number: [id number] Dictated: 04/10/171334 Transcribed: 04/10/17 133 JA Printed Date/Time: [~ rep prt dt]/[~ rep prt tm] [~ rep ct labl] - [~ rep ct ivnm] [facility] [place] [address] Dictated: 04/10/17 1335 Transcribed: 04/10/17 1335 JA Printed Date/Time: [~ rep prt dt]/[~ rep prt tm] [~ rep ct labl] - [~ rep ct ivnm] Patient: PHYLLIS FRANCO Address1: [address] Rec: [id number] Address2: [address] Acct ID: [id number] [facility] Zip: [place] [address] Date: 1930 Sex: F Room/Bed: Ref Phy: Shelly Ordoñez C.R.N.P SC: DANIEL Att Phy: Report #: [id number] Linnea Phy: Shelly Ordoñez C.R.N.P Test: CXR1P Admit Phy: It Project Manager: JONATHON Interpreting Phy: Darshan Rollins MD Diagnosis: ALTERED MENTAL STATUS, DYSPNEA Ordering Phy: Jose Marks MD Service Date: 04/10/17 Admit Date: 04/10/17 MNE: [id number] CONF: DICTATED BY: Darshan Rollins MD]] CC: Jose Marks MD Maurer, Candace, C.RLeslieN.P Endcc: [~ rep ct add3]] CHEST ONE VIEW PORTABLE CLINICAL HISTORY: Slurred speech. Altered mental status. Dyspnea. COMPARISON STUDY: Chest radiograph July 19, 2016. FINDINGS: The patient is rotated. No pneumothorax is present. There are small bilateral pleural effusions. 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 Mild cardiomegaly is unchanged. Interstitial thickening is noted. There is a 2.7 cm nodular opacity projecting over the right lung apex which may be artifactual. IMPRESSION: 1. Interstitial thickening which suggests pulmonary edema. An infectious process could appear similar but is considered less likely. 2. Small bilateral pleural effusions. 3. 2.7 cm nodular opacity projecting over the right upper lung. This is probably artifactual although airspace disease could appear similar. Radiographic follow-up to ensure resolution is recommended. Electronically signed by: Darshan Rollins M.D. 04/10/2017 1:37 PM Dictated Date/Time: 04/10/2017 1:35 PM The status of this report is Signed. Draft = Not yet reviewed or approved by Radiologist. Signed = Reviewed and approved by Radiologist. <AttendingPhy></AttendingPhy> <FamilyPhy>Shelly Ordoñez C.R.N.P</FamilyPhy> < PrimaryPhy>Shelly Ordoñez C.R.N.P</PrimaryPhy> <UnitNumber>[id number]</ UnitNumber> <VisitNumber>[id number]</VisitNumber> <PatientName>PHYLLIS FRANCO</ PatientName> <DateOfBirth>1930</DateOfBirth> <Location>[facility]</Location> < ServiceDate>04/10/17</ServiceDate> <MNE>ESINDI</MNE> <OrderingPhy>Jose Marks MD</OrderingPhy> <OrderingPhyMNE>f rep ord dr cruz</OrderingPhyMNE> < DictatingPhyMNE>f rep dict dr cruz</DictatingPhyMNE> <CCListMNE>f rep ct mne</ CCListMNE> <AdmittingPhyMNE>f pt admit dr cruz</AdmittingPhyMNE> <AttendingPhyMNE >f pt attend dr cruz</AttendingPhyMNE> <ConsultingPhyMNE>f pt consult dr cruz</ConsultingPhyMNE> <FamilyPhyMNE>f pt fam dr cruz</FamilyPhyMNE> <OtherPhyMNE>f pt other dr cruz</OtherPhyMNE> < PrimaryPhyMNE>f pt prim care dr cruz</PrimaryPhyMNE> <ReferringPhyMNE>f pt referring dr cruz</ReferringPhyMNE> EKG Reviewed EKG and agree with interpretation as follows: 125 bpm, a-fib with RVR Impression Assessment and Plan 86 y/o female with a history of a-fib, diastolic CHF, HTN, HLD, CKD stage III, anemia, and Parkinson's who presented to the ED on 04/10 with weakness and confusion. Pt arrived in a-fib with RVR with HR 120s-130s. She received total of 15 mg Lopressor IV, which did improve heart rate to 90s-low 100s. Pt was placed on 2L NC, which she is supposed to be on at home but is non-compliant. Vital signs otherwise stable. Head CT negative for acute findings, no significant changes from previous study. CXR shows pulmonary edema, small bilateral pleural effusions and a 2.7 cm nodular opacity in the RUL. EKG shows a-fib with RVR. Creatinine elevated above baseline at 1.5, BUN elevated at 38 above baseline. Cardiac enzymes negative. Encephalopathy of unknown etiology--does not appear to have infection, afebrile and without leukocytosis -Admit to telemetry -Check B12, folate, ammonia. B12 and folate were low in June 2016. Currently on supplementation but has h/o noncompliance -NPO until more alert and dysphagia screen completed -Fall and aspiration precautions A-fib with RVR--improving after receiving Lopressor in ED -Continue Toprol 25 mg PO BID, digoxin 125 mcg PO q2d when able to safely take PO -Digoxin level subtherapeutic at 0.6 -Lopressor 5 mg IV q4h prn tachycardia >120 bpm -Consider cardiology consult if rate remains uncontrolled -Pt not on anticoagulation due to h/o life-threatening GI bleed Pulmonary edema, ?acute exacerbation of chronic diastolic CHF -Received 1 dose Lasix 40 mg IV in ED -Barnes catheter in place -Hold further Lasix for now due to PRISCILLA, continue to monitor -Daily weights, strict I's and O's -Tachycardia may be contributing to pulmonary edema -Repeat echo. Last echo May 2016 had preserved LVEF of 60-55%, no WMA PRISCILLA on CKD stage III--baseline creatinine 1.0-1.2 -Creatinine 1.5 on admission -Pt given 500 cc NSS bolus in ED, then Lasix 40 mg IV x1 -Hold home Lasix for now and continue to monitor. Hold off on IVF due to pulmonary edema as above HTN--stable -Toprol as above Megaloblastic anemia--stable -Hgb WNL at 13.5 -Continue ferrous sulfate 325 mg PO, B12 and folate supplement when able to safely take PO H/o biliary stent, GERD--biliary stent removed in October 2016 per outpatient records -Continue Protonix 40 mg PO qd and ursodiol 300 mg PO BID when taking PO DVT prophylaxis -Heparin 5000 units SC q12h for now, stop if any s/s bleeding -LUPE ravi and SCDs Code Status -Level V, DO NOT RESUSCITATE Resident Physician Supervision Note: I was present with Dr. Rose Espinosa during the history and exam. I discussed the case with the PA and agree with the findings and plan as documented in the note. Any exceptions or clarifications are listed here 86 y/o F Hx CHF, AF, CKD - medical noncompliance presented with AMS and lethargy - found to be in rapid AF with a degree of failure Could not contribute to the HPI and pt's was not available at time of admission. Renal function is notably worse as well. OE Awake - lethargic - disoriented S1,2 irr / faint NT, ND, BS+ NT, ND + ed. P: Provided with IV Bblocker for rate control Diuresed with Lasix Will monitor BMP to assess for improvement or further impairment of renal function following diuresis PT/OT when baseline orientation returns May need placement Documented By: Evan Fields Level of Care Telemetry Advanced Directives Existing Living Will: No Existing Power of Spray Mixer: No Resuscitation Status DO NOT RESUSCITATE VTE Prophylaxis VTE Risk Assessment Done? Y/N: Yes Risk Level: Moderate Given or contraindicated: Unfractionated heparin SQ, T.E.D. Stockings, SCD's
[2017-04-10] MEDS: LACTOBACILLUS ACIDOPHILUS (FLORANEX) TAB PO SCH (18:30)
[2017-04-10 18:34] VITALS: BP 127/86; PULSE 107; TEMP 36.3; O2SAT 96
[2017-04-10 19:27] VITALS: BP 127/87; PULSE 114; TEMP 36.4; O2SAT 91
[2017-04-10] MEDS: URSODIOL 300 MG CAP PO SCH (20:13)
[2017-04-10] MEDS: HEPARIN SOD 5000 UNIT/0.5 ML CARP SQ SCH (20:15)
[2017-04-10] MEDS ORDERED: METOPROLOL SUCC 25MG EXT REL TAB PO SCH (21:00)
[2017-04-10 23:31] VITALS: BP 124/73; PULSE 97; TEMP 36.6; O2SAT 98
[2017-04-11] VITALS (8 sets, daily range): BP systolic 100–131; BP diastolic 63–80; PULSE 82–108; TEMP 36.3–36.9; O2SAT 90–98
[2017-04-11] MEDS: HEPARIN SOD 5000 UNIT/0.5 ML CARP SQ SCH ×3 (05:37→20:59)
[2017-04-11 07:12] LABS: HEMATOCRIT 41.4 % (37-47); MEAN CELL VOLUME 108.9 fL (80-100); MEAN CORPUSCULAR HEMOGLOBIN 33.7 pg (25-34); MEAN CORPUSCULAR HGB CONC 30.9 g/dl (32-36); PLATELET COUNT 151 K/uL (130-400)
[2017-04-11 07:40] LABS: BUN/CREATININE RATIO 25.8 (10-20); CALCIUM 8.8 mg/dl (8.5-10.1); CREATININE 1.7 mg/dl (0.60-1.20); POTASSIUM 4.1 mmol/L (3.5-5.1)
[2017-04-11] MEDS: LACTOBACILLUS ACIDOPHILUS (FLORANEX) TAB PO SCH ×3 (07:45→15:52)
[2017-04-11] MEDS: URSODIOL 300 MG CAP PO SCH ×2 (07:46→20:57)
[2017-04-11] MEDS: PANTOprazole SOD 40 MG TAB PO SCH (07:46)
[2017-04-11] MEDS: POTASSIUM CHLORIDE 10 MEQ TABCR PO SCH (07:46)
[2017-04-11] MEDS: FERROUS SULFATE 325 MG TAB PO SCH (07:46)
[2017-04-11] MEDS: CYANOCOBALAMIN 500 MCG TAB (VIT B-12) PO SCH (07:47)
[2017-04-11] MEDS: METOPROLOL SUCC 50MG EXT REL TAB PO SCH ×2 (09:07→20:57)
--- NOTE | 2017-04-11 10:50 | Clinical Documentation Query ---
CLINICAL DOCUMENTATION QUERY Dr. LEONARD, In your clinical opinion is this patient being managed for: ( X ) healing Sacral Pressure ulcer, stage 2, POA ( ) Other explanation of clinical findings (Please Explain) ( ) Unable to determine (Please Define) ( ) Need to Discuss ( ) Not Agree The medical record reflects the following clinical findings, treatment, and risk factors. Clinical Indicators: 86 yo female presented with altered mental status and acute on chronic diastolic CHF. Noted WOCN consult order and her documentation reflects: appears to have a healing Stage II pressure injury on sacral area. Treatment: WOCN consult, alevyn dressing, reposition q 2 hours Risk Factors: limited mobility, dependent transfers, extensive time spent in wheelchair Please clarify and document your clinical opinion in the progress notes and discharge summary. Terms such as "probable", "suspected", "likely", "questionable", "possible", or "still to be ruled out" are acceptable. IF IN AGREEMENT, YOU MUST DOCUMENT ABOVE DIAGNOSTIC STATEMENT IN DAILY PROGRESS NOTES AND DISCHARGE SUMMARY. This document is not part of the patient's record. Thank You, Gail Thrasher RN [phone]
--- NOTE | 2017-04-11 11:20 | Progress Note ---
Subjective Date of Service: Apr 11, 2017. Subjective Pt evaluation today including: conversation w/ patient, physical exam, chart review, lab review, review of studies, review of inpatient medication list Pt confused at bedside No discernible hx per patient No distress noted Problem List Medical Problems: (1) Atrial fibrillation Status: Chronic (2) Change in mental status Status: Acute (3) CHF (congestive heart failure) Status: Acute (4) Coagulopathy Status: Acute (5) Dehydration Status: Acute (6) Diarrheal disease Status: Acute (7) Heme positive stool Status: Acute (8) Pneumonia involving left lung Status: Acute (9) Pulmonary edema Status: Acute (10) Right lower lobe pneumonia Status: Acute (11) TIA (transient ischemic attack) Status: Acute Review of Systems Constitutional: No fever, No chills, No sweats, No weight loss ENT: No hearing loss, No unusual epistaxis, No nasal symptoms, No sore throat Respiratory: No cough, No sputum, No wheezing, No shortness of breath Cardiac: No chest pain, No orthopnea, No PND, No edema Abdomen: No pain, No nausea, No vomiting, No diarrhea, No constipation Musculoskeletal: No joint pain, No muscle pain, No swelling, No calf pain Female : No dysuria, No urinary frequency, No hematuria, No incontinence Neurologic: No memory loss, No paralysis, No weakness, No numbness/tingling Psychiatric: No depression symptoms, No anhedonism, No anxiety, No insomnia Heme: No clotting problems, No swollen lymph nodes Endo: No fatigue, No excessive thirst Skin: No rash, No itch Objective Vital Signs Date Time Temp Pulse Resp B/P (MAP) Pulse Ox O2 Delivery O2 Flow Rate FiO2 04/11/17 08:26 90 Nasal Cannula 3.0 04/11/17 07:34 36.4 100 18 125/80 (95) 90 Room Air 3.0 04/11/17 04:00 Nasal Cannula 3.5 04/11/17 03:50 36.5 97 20 124/79 (94) 98 Nasal Cannula 3.5 04/10/17 23:59 Nasal Cannula 2.0 04/10/17 23:31 36.6 97 16 124/73 (90) 98 Nasal Cannula 3.5 04/10/17 20:00 Nasal Cannula 2.0 04/10/17 19:27 36.4 114 23 127/87 (100) 91 Nasal Cannula 2.0 04/10/17 18:34 36.3 107 19 127/86 (100) 96 Nasal Cannula 2.0 04/10/17 17:27 109 20 121/91 94 Nasal Cannula 2.0 04/10/17 16:30 36.5 118 22 128/88 (101) 96 Nasal Cannula 2.0 04/10/17 16:16 Room Air 04/10/17 15:32 100 24 132/83 95 Nasal Cannula 2.0 04/10/17 14:40 115 118/101 04/10/17 14:20 118 24 137/101 04/10/17 14:07 100 24 128/88 95 Nasal Cannula 2.0 04/10/17 14:05 105 24 114/83 96 Nasal Cannula 2.0 04/10/17 13:57 130 28 142/104 95 Nasal Cannula 2.0 04/10/17 13:23 116 24 144/110 98 04/10/17 12:40 97 Nasal Cannula 2.0 04/10/17 11:55 124 04/10/17 11:48 36.7 128 28 125/91 88 Room Air Physical Exam General Appearance: WD/WN, + thin Eyes: normal inspection, PERRL, EOMI, sclerae normal Neck: supple, no adenopathy, thyroid normal, no JVD Respiratory/Chest: chest non-tender, no accessory muscle use, + decreased breath sounds, + wheezing Cardiovascular: no edema, no gallop, no JVD, no murmur Abdomen: normal bowel sounds, non tender, soft, no organomegaly Neurologic/Psychiatric: no motor/sensory deficits, alert, normal mood/affect, + disoriented Laboratory Results Last 24 Hours Test 04/10/17 13:00 04/10/17 13:08 04/10/17 13:58 04/10/17 14:44 White Blood Count 8.41 K/uL Red Blood Count 4.07 M/uL Hemoglobin 13.5 g/dL Hematocrit 43.1 % Mean Corpuscular Volume 105.9 fL Mean Corpuscular Hemoglobin 33.2 pg Mean Corpuscular Hemoglobin Concent 31.3 g/dl Platelet Count 156 K/uL Mean Platelet Volume 13.2 fL Neutrophils (%) (Auto) 62.4 % Lymphocytes (%) (Auto) 17.2 % Monocytes (%) (Auto) 19.4 % Eosinophils (%) (Auto) 0.6 % Basophils (%) (Auto) 0.2 % Neutrophils # (Auto) 5.24 K/uL Lymphocytes # (Auto) 1.45 K/uL Monocytes # (Auto) 1.63 K/uL Eosinophils # (Auto) 0.05 K/uL Basophils # (Auto) 0.02 K/uL RDW Standard Deviation 60.9 fL RDW Coefficient of Variation 16.2 % Immature Granulocyte % (Auto) 0.2 % Immature Granulocyte # (Auto) 0.02 K/uL Prothrombin Time 12.5 SECONDS Prothromb Time International Ratio 1.2 Sodium Level 141 mmol/L Potassium Level 3.8 mmol/L Chloride Level 104 mmol/L Carbon Dioxide Level 33 mmol/L Anion Gap 4.0 mmol/L Blood Urea Nitrogen 38 mg/dl Creatinine 1.50 mg/dl Est Creatinine Clear Calc Drug Dose 21.8 ml/min Estimated GFR () 35.9 Estimated GFR (Non- 31.0 BUN/Creatinine Ratio 25.1 Random Glucose 127 mg/dl Calcium Level 9.1 mg/dl Magnesium Level 2.6 mg/dl Total Bilirubin 1.6 mg/dl Direct Bilirubin 0.4 mg/dl Aspartate Amino Transf (AST/SGOT) 28 U/L Alanine Aminotransferase (ALT/SGPT) 19 U/L Alkaline Phosphatase 101 U/L Total Creatine Kinase 56 U/L Creatine Kinase MB 0.9 ng/ml Creatine Kinase MB Ratio 1.6 Troponin I 0.021 ng/ml Total Protein 8.5 gm/dl Albumin 3.2 gm/dl Thyroid Stimulating Hormone (TSH) 0.954 uIu/ml Bedside Glucose 129 mg/dl Digoxin Level 0.6 ng/ml Urine Color YELLOW Urine Appearance CLEAR Urine pH 5.5 Urine Specific Nada 1.017 Urine Protein 2+ Urine Glucose (UA) NEG Urine Ketones NEG Urine Occult Blood 1+ Urine Nitrite NEG Urine Bilirubin NEG Urine Urobilinogen NEG Urine Leukocyte Esterase MODERATE Urine WBC (Auto) 10-30 /hpf Urine RBC (Auto) 0-4 /hpf Urine Hyaline Casts (Auto) 10-30 /lpf Urine Epithelial Cells (Auto) >30 /lpf Urine Bacteria (Auto) 1+ Test 04/10/17 17:42 04/11/17 06:34 Ammonia 11.0 umol/L Vitamin B12 Level 1940 pg/mL Folate > 24.00 ng/mL White Blood Count 9.10 K/uL Red Blood Count 3.80 M/uL Hemoglobin 12.8 g/dL Hematocrit 41.4 % Mean Corpuscular Volume 108.9 fL Mean Corpuscular Hemoglobin 33.7 pg Mean Corpuscular Hemoglobin Concent 30.9 g/dl RDW Standard Deviation 62.8 fL RDW Coefficient of Variation 16.3 % Platelet Count 151 K/uL Mean Platelet Volume 13.0 fL Sodium Level 145 mmol/L Potassium Level 4.1 mmol/L Chloride Level 105 mmol/L Carbon Dioxide Level 33 mmol/L Anion Gap 7.0 mmol/L Blood Urea Nitrogen 44 mg/dl Creatinine 1.70 mg/dl Est Creatinine Clear Calc Drug Dose 19.3 ml/min Estimated GFR () 30.9 Estimated GFR (Non- 26.6 BUN/Creatinine Ratio 25.8 Random Glucose 102 mg/dl Calcium Level 8.8 mg/dl Assessment and Plan 86 y/o female with a history of a-fib, diastolic CHF, HTN, HLD, CKD stage III, anemia, and Parkinson's who presented to the ED on 04/10 with weakness and confusion. Pt arrived in a-fib with RVR with HR 120s-130s. She received total of 15 mg Lopressor IV, which did improve heart rate to 90s-low 100s. Pt was placed on 2L NC, which she is supposed to be on at home but is non-compliant. Vital signs otherwise stable. Head CT negative for acute findings, no significant changes from previous study. CXR shows pulmonary edema, small bilateral pleural effusions and a 2.7 cm nodular opacity in the RUL. EKG shows a-fib with RVR. Creatinine elevated above baseline at 1.5, BUN elevated at 38 above baseline. Cardiac enzymes negative. Encephalopathy of unknown etiology--does not appear to have infection, afebrile and without leukocytosis -Admit to telemetry -B12, folate, ammonia WNL -Improving to baseline per -NPO until more alert and dysphagia screen completed -Fall and aspiration precautions A-fib with RVR--still tachycardic -Increased toprol to 50 mg PO BID, digoxin 125 mcg PO q2d when able to safely take PO -Digoxin level subtherapeutic at 0.6 -Lopressor 5 mg IV q4h prn tachycardia >120 bpm -Consider cardiology consult if rate remains uncontrolled -Pt not on anticoagulation due to h/o life-threatening GI bleed Healing sacral pressure ulcer stage 2 Pulmonary edema, ?acute exacerbation of chronic diastolic CHF -Received 1 dose Lasix 40 mg IV in ED -Barnes catheter in place -Hold further Lasix for now due to PRISCILLA, continue to monitor -Daily weights, strict I's and O's -Tachycardia may be contributing to pulmonary edema -Repeat echo. Last echo May 2016 had preserved LVEF of 60-55%, no WMA PRISCILLA on CKD stage III--baseline creatinine 1.0-1.2 -Creatinine 1.5 -->1.7 -Pt given 500 cc NSS bolus in ED, then Lasix 40 mg IV x1 -Hold home Lasix for now and continue to monitor. HTN--stable -Toprol as above Megaloblastic anemia--stable -Hgb WNL at 13.5 -Continue ferrous sulfate 325 mg PO, B12 and folate supplement when able to safely take PO H/o biliary stent, GERD--biliary stent removed in October 2016 per outpatient records -Continue Protonix 40 mg PO qd and ursodiol 300 mg PO BID when taking PO DVT prophylaxis -Heparin 5000 units SC q12h for now, stop if any s/s bleeding -LUPE ravi and PHILLs Code Status -Level V, DO NOT RESUSCITATE
--- NOTE | 2017-04-11 12:21 | ECHOCARDIOGRAM REPORT ---
*NOTICE TO RECEIVING [employer] This information is strictly Confidential and protected under [place] law. [place] law prohibits you from making any further disclosure of this information unless further disclosure is expressly permitted by the written consent of the person to whom it pertains or is authorized by law. A general authorization for the release of medical or other information is not sufficient for this purpose. Hospital accepts no responsibility if the information is made available to any other person, INCLUDING THE PATIENT. Interpretation Summary * Name: PHYLLIS FRANCO Study Date: 04/11/2017 06:55 AM BP: 124/79 mmHg * Patient Location: C.2T\S\S240\S\1 HR: 107 * : 1930 (M/d/yyyy) Gender: Female Height: 63 in * Age: 86 yrs Ethnicity: CA Weight: 133 lb * Ordering Physician: Rose Espinosa * Referring Physician: Self, Referred * Performed By: Frances Mishra RCS * * Reason For Study: A-FIB / CHF / POSS TIA * BSA: 1.6 m2 * -- Conclusions -- * There is mild concentric left ventricular hypertrophy. * Left ventricular systolic function is mildly reduced. * The left atrium is severely dilated. * The right atrium is mildly dilated. * Mild aortic regurgitation. * Regurgitation is at least moderate and possibly severe. * There is mild to moderate tricuspid regurgitation. * Right ventricular systolic pressure is elevated at 40-50mmHg. * The inferior vena cava is mildly dilated. * Moderate size left pleural effusion. * Compared to a study from 05/2016, the LV systolic function is no longer normal. Procedure Details * A complete two-dimensional transthoracic echocardiogram was performed (2D, M-mode, Doppler and color flow Doppler). Left Ventricle * The left ventricle is grossly normal size. * There is mild concentric left ventricular hypertrophy. * Left ventricular systolic function is mildly reduced. * Ejection Fraction = 40-45%. Right Ventricle * The right ventricle is normal in size and function. Atria * The left atrium is severely dilated. * The right atrium is mildly dilated. Mitral Valve * Calcified mitral apparatus. * Regurgitation is at least moderate and possibly severe. Tricuspid Valve * The tricuspid valve is not well visualized, but is grossly normal. * There is mild to moderate tricuspid regurgitation. * Right ventricular systolic pressure is elevated at 40-50mmHg. Aortic Valve * Aortic valve sclerosis moderate, without significant aortic valvular stenosis. * Not well-characterized, but no evidence of stenosis. * Mild aortic regurgitation. Pericardium/Pleural * There is no pericardial effusion. * Moderate size left pleural effusion. Great Vessels * The inferior vena cava is mildly dilated. MMode 2D Measurements and Calculations IVSd 1.4 cm IVSs 1.3 cm LVIDd 4.2 cm LVIDs 3.8 cm LVPWd 1.4 cm LVPWs 1.4 cm IVS/LVPW 1.0 FS 9.9 % EDV(Teich) 80.5 ml ESV(Teich) 62.9 ml EF(Teich) 21.8 % EDV(cubed) 76.4 ml ESV(cubed) 56.0 ml EF(cubed) 26.7 % % IVS thick -9.72 % % LVPW thick 3.3 % LV mass(C)d 222.5 grams LV mass(C)dI 136.8 grams/m\S\2 LV mass(C)s 181.5 grams LV mass(C)sI 111.6 grams/m\S\2 SV(Teich) 17.6 ml SI(Teich) 10.8 ml/m\S\2 SV(cubed) 20.4 ml SI(cubed) 12.6 ml/m\S\2 Ao root diam 3.1 cm Ao root area 7.4 cm\S\2 LA dimension 5.0 cm LA/Ao 1.6 LVOT diam 2.1 cm LVOT area 3.6 cm\S\2 LVAd ap4 31.0 cm\S\2 LVLd ap4 6.5 cm EDV(MOD-sp4) 116.4 ml EDV(sp4-el) 124.7 ml LVAs ap4 27.1 cm\S\2 LVLs ap4 6.3 cm ESV(MOD-sp4) 93.4 ml ESV(sp4-el) 98.1 ml EF(MOD-sp4) 19.7 % EF(sp4-el) 21.3 % SV(MOD-sp4) 23.0 ml SI(MOD-sp4) 14.1 ml/m\S\2 SV(sp4-el) 26.6 ml SI(sp4-el) 16.4 ml/m\S\2 Doppler Measurements and Calculations MV E max trino 110.5 cm/sec MV P1/2t max trino 142.4 cm/sec MV P1/2t 50.5 msec MVA(P1/2t) 4.4 cm\S\2 MV dec slope 826.3 cm/sec\S\2 MV dec time 0.18 sec AI max trino 260.7 cm/sec AI max PG 27.2 mmHg AI dec slope 209.6 cm/sec\S\2 AI P1/2t 364.2 msec LV V1 max PG 0.59 mmHg LV V1 max 38.3 cm/sec MR max trino 453.7 cm/sec MR max PG 82.5 mmHg TR max trino 271.0 cm/sec
[2017-04-12] VITALS (12 sets, daily range): BP systolic 114–142; BP diastolic 70–90; PULSE 76–111; TEMP 36.2–36.5; O2SAT 91–99
[2017-04-12] MEDS: HEPARIN SOD 5000 UNIT/0.5 ML CARP SQ SCH ×3 (05:54→20:20)
[2017-04-12 06:59] LABS: HEMATOCRIT 41.6 % (37-47); MEAN CELL VOLUME 107.5 fL (80-100); MEAN CORPUSCULAR HEMOGLOBIN 32.8 pg (25-34); MEAN CORPUSCULAR HGB CONC 30.5 g/dl (32-36); MEAN PLATELET VOLUME 13.2 fL (7.4-10.4); PLATELET COUNT 164 K/uL (130-400); RED BLOOD COUNT 3.87 M/uL (4.2-5.4); WHITE BLOOD COUNT 8.61 K/uL (4.8-10.8)
[2017-04-12 07:35] LABS: BUN/CREATININE RATIO 25.5 (10-20); CALCIUM 8.7 mg/dl (8.5-10.1); CREATININE 1.9 mg/dl (0.60-1.20); POTASSIUM 3.7 mmol/L (3.5-5.1)
[2017-04-12] MEDS: METOPROLOL SUCC 50MG EXT REL TAB PO SCH (08:29)
[2017-04-12] MEDS: CYANOCOBALAMIN 500 MCG TAB (VIT B-12) PO SCH (08:29)
[2017-04-12] MEDS: POTASSIUM CHLORIDE 10 MEQ TABCR PO SCH (08:29)
[2017-04-12] MEDS: PANTOprazole SOD 40 MG TAB PO SCH (08:29)
[2017-04-12] MEDS: FERROUS SULFATE 325 MG TAB PO SCH (08:29)
[2017-04-12] MEDS: URSODIOL 300 MG CAP PO SCH ×2 (08:30→20:09)
[2017-04-12] MEDS: LACTOBACILLUS ACIDOPHILUS (FLORANEX) TAB PO SCH ×3 (08:30→16:40)
--- NOTE | 2017-04-12 10:04 | Cardiology Consultation ---
Cardiology Consultation Date of Consultation: Apr 12, 2017. Requesting Physician: Dr. Chapman Attending Physician: Dr. Boogie Reason for Consultation: Afib with RVR Pt evaluation today including: conversation w/ patient, conversation w/ family , physical exam, chart review, lab review, review of studies, review of inpatient medication list, conversation w/ attending History of Present Illness Mrs. Salter is an 86 year old female with a medical history significant for paroxysmal atrial fibrillation (no anticoagulation due to hx of GI bleed), chronic diastolic CHF, valvular heart disease (mild to moderate , mild AI, moderate MR), hypertension, hyperlipidemia, CKD, anemia and Parkinson's who was admitted on 04/10/17 with weakness and confusion. She has a history of paroxysmal atrial fibrillation and is followed in our clinic by Dr. Boogie. 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 As an outpatient she was on metoprolol succinate 25 mg twice daily and digoxin 0.125 mg daily for her atrial fibrillation. Her reports over the 2 days leading up to hospital admission she did not seem herself. He noticed a decreased appetite and shortness of breath. The patient did not express any complaints and cannot recall the events leading up to her admission. On the the day of admission she became hypoxic, confused, had slurred speech and her abdomen seemed "rock hard." She was brought to [facility] via ambulance. An electrocardiogram in the emergency department demonstrated atrial fibrillation with RVR with a rate in the 120-130s. Her chest x-ray noted interstitial thickening suggestive of pulmonary edema and small bilateral pleural effusions. She was given a dose of IV Lasix. Her troponin I was 0.[address] on [address] A head CT showed no acute changes. Since admission she has remained in atrial fibrillation with uncontrolled ventricular response. Her metoprolol succinate has been increased to 50 mg twice daily. She remains on her usual dose of digoxin. She was seen at the bedside today and was accompanied by her who helps provide the history. She reports feeling "great" and is ready to go home. Her reports she seems back to her "normal self" today. He believes her mental status is back to baseline. He has not noticed any further slurred speech. She denies chest pain, dyspnea, orthopnea, PND, peripheral edema, palpitations, lightheadedness, presyncope or syncope. No abnormal bleeding including melena, hematochezia or hematuria. No new neurological symptoms. The remainder of her review of systems is unremarkable. Family History No pertinent family history Social History Smoking Status: Never Smoker History of Alcohol Use: No Review of Systems Respiratory: No cough, No sputum, No wheezing, No shortness of breath Cardiac: No chest pain, No orthopnea, No PND, No edema Allergies Coded Allergies: Penicillins (Verified Allergy, Mild, HIVES, 06/27/16) Tetanus Toxoid (Verified Allergy, Mild, FEVR, N/V, 06/27/16) Medications Current Inpatient Medications Medications (Trade) Dose Ordered Sig/Michael Route Start Time Stop Time Status Last Admin Dose Admin Heparin Sodium (Porcine) (Heparin Sq 5000 Unit/0.5ml) 5,000 unit Q8 SQ 04/10/17 22:00 05/10/17 21:59 04/12/17 05:54 5,000 UNIT Acetaminophen (Tylenol Tab) 650 mg Q4H PRN PO 04/10/17 17:00 05/10/17 16:59 Al Hydrox/Mg Hydrox/Simethicone (Maalox Max Susp) 15 ml Q4H PRN PO 04/10/17 17:00 05/10/17 16:59 Magnesium Hydroxide (Milk Of Magnesia Susp) 30 ml Q12H PRN PO 04/10/17 17:00 05/10/17 16:59 Ondansetron HCl (Zofran Inj) 4 mg Q6H PRN IV 04/10/17 17:00 05/10/17 16:59 Polyethylene (Miralax Powder Packet) 17 gm DAILY PRN PO 04/10/17 17:00 05/10/17 16:59 Cyanocobalamin (Vitamin B-12 Tab) 1,000 mcg DAILY PO 04/11/17 09:00 05/11/17 08:59 04/12/17 08:29 1,000 MCG Digoxin (Lanoxin Tab) 0.125 mg Q2D@1600 PO 04/12/17 16:00 05/12/17 15:59 Ferrous Sulfate (Feosol Tab) 325 mg QAM PO 04/11/17 09:00 05/11/17 08:59 04/12/17 08:29 325 MG Folic Acid (Folvite Tab) 1 mg QAM PO 04/11/17 09:00 05/11/17 08:59 04/12/17 08:29 1 MG Pantoprazole Sodium (Protonix Tab) 40 mg QAM PO 04/11/17 09:00 05/11/17 08:59 04/12/17 08:29 40 MG Ursodiol (Actigall Cap) 300 mg BID PO 04/10/17 21:00 05/10/17 20:59 04/12/17 08:30 300 MG Potassium Chloride (Klor-Con M10) 10 meq DAILY PO 04/11/17 09:00 05/11/17 08:59 04/12/17 08:29 10 MEQ Lactobacillus Acidophilus (Floranex Tab) 4 tab TIDM PO 04/10/17 18:30 05/10/17 18:29 04/12/17 08:30 4 TAB Metoprolol Tartrate (Lopressor Iv) 5 mg Q4H PRN IV 04/10/17 17:00 05/10/17 16:59 Metoprolol Succinate (Toprol Xl Tab) 50 mg BID PO 04/11/17 09:00 05/10/17 20:59 04/12/17 08:29 50 MG Physical Exam Vital Signs Past 12 Hours Date Time Temp Pulse Resp B/P (MAP) Pulse Ox O2 Delivery O2 Flow Rate FiO2 04/12/17 08:00 97 Nasal Cannula 2.0 04/12/17 07:51 36.2 106 18 142/90 (107) 97 2.0 04/12/17 04:00 Nasal Cannula 2.0 04/12/17 03:58 36.3 111 18 130/78 (95) 94 Nasal Cannula 2.0 04/11/17 23:59 36.3 93 16 111/75 (87) 91 Nasal Cannula 2.0 04/11/17 23:59 Nasal Cannula 2.0 General: No acute distress. Supplemental O2 via nasal cannula. HEENT: Head is normal. PERRLA. EOMI. Sclera nonicteric. Mucous membranes moist. Neck: supple without JVD at 90 degrees. No carotid bruit. Lungs: Decreased breath sounds but clear without rales, rhonchi or wheezing. No respiratory distress. Cardiac: Irregularly irregular rhythm with tachycardic rate. Grade 2/6 basal systolic ejection murmur. No diastolic murmur or gallop. Abdomen: Soft and nontender. Bowel sounds present. No appreciable mass or organomegaly. no abdominal bruit. Extremities: No cyanosis, clubbing or peripheral edema. Skin: No rash or abnormal lesions. Normal turgor. Neurologic: No lateralizing changes. Slow speech apparently unchanged. Mild confusion which is at baseline per . Psychiatric: Affect seems appropriate. Data Laboratory Results: Last 24 Hours Test 04/12/17 06:38 White Blood Count 8.61 K/uL Red Blood Count 3.87 M/uL Hemoglobin 12.7 g/dL Hematocrit 41.6 % Mean Corpuscular Volume 107.5 fL Mean Corpuscular Hemoglobin 32.8 pg Mean Corpuscular Hemoglobin Concent 30.5 g/dl RDW Standard Deviation 60.7 fL RDW Coefficient of Variation 15.9 % Platelet Count 164 K/uL Mean Platelet Volume 13.2 fL Sodium Level 142 mmol/L Potassium Level 3.7 mmol/L Chloride Level 102 mmol/L Carbon Dioxide Level 34 mmol/L Anion Gap 6.0 mmol/L Blood Urea Nitrogen 48 mg/dl Creatinine 1.90 mg/dl Est Creatinine Clear Calc Drug Dose 17.2 ml/min Estimated GFR () 27.0 Estimated GFR (Non- 23.3 BUN/Creatinine Ratio 25.5 Random Glucose 97 mg/dl Calcium Level 8.7 mg/dl Imaging: CXR 04/10/17 with interstitial thickening, small bilateral pleural effusions and 2.7 cm nodular opacity projecting over right upper lung probably artifactual although airspace disease could appear similar. Head CT 04/10/17: White matter hypodensity nonspecific but suggestive of microvascular ischemic change. Age related changes. No acute process. EKG 04/12/17: atrial fibrillation with rapid ventricular response of 116 bpm, premature ventricular or aberrantly conducted complexes. Incomplete LBBB, abnormal QRS T angle. Compared to EKG 04/11/17 no significant change. Telemetry reviewed: Atrial fibrillation with ventricular response in 90s to low 100s. Echocardiogram 04/11/17: mild concentric LVH, left ventricular systolic function low normal (EF 40-45%). Left atrium severely dilated. Right atrium mildly dilated. Mild AR. MR at least moderate and possibly severe. Mild to moderate TR. Right ventricular systolic pressure elevated at 40-50mmHg. Inferior vena cava mildly dilated. Moderate left pleural effusion. Assessment & Plan Patient discussed with Dr. Boogie. 1. Atrial fibrillation with RVR: Patient has history of paroxysmal atrial fibrillation and was admitted 04/10/17 with confusion, weakness and dyspnea per . Patient cannot tell when she is in atrial fibrillation so it is difficult to tell when this episode started. However, the notes she did not seem herself for the past 4 days so she may have been in atrial fibrillation for >48 hours. She is not chronically anticoagulated due to history of life threatening GI bleed. Therefore, we will avoid antiarrhythmic therapy at this point and recommend rate control strategy. Recommend giving an extra dose of IV digoxin today but will avoid increasing regular dose of digoxin at this time given her renal function. Recommend increasing metoprolol succinate to 75 mg BID. 2. Chronic diastolic CHF: She appeared hypervolemic at the time of admission which responded to one dose of IV Lasix. Her echocardiogram suggests mildly reduced left ventricular systolic function but this was in the setting of atrial fibrillation with RVR and may not be accurate. This can be reevaluated in the future. She currently appears euvolemic and I&O's show negative balance. Agree with holding diuretics for now given acute on chronic renal insufficiency. Continue daily weights, strict I&O's and monitoring of renal function. Thank you for the consultation. We will continue to follow.
--- NOTE | 2017-04-12 13:13 | Progress Note ---
Subjective Date of Service: Apr 12, 2017. Subjective Pt evaluation today including: conversation w/ patient, conversation w/ family , physical exam, chart review, lab review, review of studies, conversation w/ process consultant, review of inpatient medication list Pt resting comfortably in bed Mentation improved but not back at baseline per Pt denies any chest discomfort or palpitations Problem List Medical Problems: (1) Atrial fibrillation Status: Chronic (2) Change in mental status Status: Acute (3) CHF (congestive heart failure) Status: Acute (4) Coagulopathy Status: Acute (5) Dehydration Status: Acute (6) Diarrheal disease Status: Acute (7) Heme positive stool Status: Acute (8) Pneumonia involving left lung Status: Acute (9) Pulmonary edema Status: Acute (10) Right lower lobe pneumonia Status: Acute (11) TIA (transient ischemic attack) Status: Acute Review of Systems Constitutional: No fever, No chills, No sweats, No weight loss, No weakness ENT: No hearing loss, No unusual epistaxis, No nasal symptoms, No sore throat Respiratory: No cough, No sputum, No wheezing, No shortness of breath Cardiac: No chest pain, No orthopnea, No PND, No edema Abdomen: No pain, No nausea, No vomiting, No diarrhea, No constipation Musculoskeletal: No joint pain, No muscle pain, No swelling, No calf pain Female : No dysuria, No urinary frequency, No hematuria, No incontinence Psychiatric: No depression symptoms, No anhedonism, No anxiety, No insomnia Endo: No fatigue, No excessive thirst Skin: No rash, No itch Objective Vital Signs Date Time Temp Pulse Resp B/P (MAP) Pulse Ox O2 Delivery O2 Flow Rate FiO2 04/12/17 12:00 95 Nasal Cannula 2.0 04/12/17 11:04 36.4 101 20 132/74 (93) 98 3.0 04/12/17 08:00 97 Nasal Cannula 2.0 04/12/17 07:51 36.2 106 18 142/90 (107) 97 2.0 04/12/17 04:00 Nasal Cannula 2.0 04/12/17 03:58 36.3 111 18 130/78 (95) 94 Nasal Cannula 2.0 04/11/17 23:59 36.3 93 16 111/75 (87) 91 Nasal Cannula 2.0 8/9/17 23:59 Nasal Cannula 2.0 04/11/17 20:00 Nasal Cannula 2.0 04/11/17 20:00 36.3 108 18 106/63 (77) 94 Nasal Cannula 2.0 04/11/17 16:00 Nasal Cannula 3.0 04/11/17 15:32 36.3 106 18 122/74 (90) 97 Nasal Cannula 3.5 Physical Exam General Appearance: WD/WN, no apparent distress Eyes: normal inspection, PERRL, EOMI, sclerae normal Neck: supple, no adenopathy, thyroid normal, no JVD Respiratory/Chest: chest non-tender, lungs clear, normal breath sounds, no respiratory distress Cardiovascular: no JVD, no murmur, + tachycardia, + irregularly irregular Abdomen: normal bowel sounds, non tender, soft, no organomegaly Extremities: normal range of motion, non-tender, normal inspection, no pedal edema Neurologic/Psychiatric: no motor/sensory deficits, alert, normal mood/affect, + disoriented Skin: normal color, warm/dry, no rash Lymphatic: no adenopathy Laboratory Results Last 24 Hours Test 04/12/17 06:38 White Blood Count 8.61 K/uL Red Blood Count 3.87 M/uL Hemoglobin 12.7 g/dL Hematocrit 41.6 % Mean Corpuscular Volume 107.5 fL Mean Corpuscular Hemoglobin 32.8 pg Mean Corpuscular Hemoglobin Concent 30.5 g/dl RDW Standard Deviation 60.7 fL RDW Coefficient of Variation 15.9 % Platelet Count 164 K/uL Mean Platelet Volume 13.2 fL Sodium Level 142 mmol/L Potassium Level 3.7 mmol/L Chloride Level 102 mmol/L Carbon Dioxide Level 34 mmol/L Anion Gap 6.0 mmol/L Blood Urea Nitrogen 48 mg/dl Creatinine 1.90 mg/dl Est Creatinine Clear Calc Drug Dose 17.2 ml/min Estimated GFR () 27.0 Estimated GFR (Non- 23.3 BUN/Creatinine Ratio 25.5 Random Glucose 97 mg/dl Calcium Level 8.7 mg/dl Assessment and Plan 86 y/o female with a history of a-fib, diastolic CHF, HTN, HLD, CKD stage III, anemia, and Parkinson's who presented to the ED on 04/10 with weakness and confusion. Pt arrived in a-fib with RVR with HR 120s-130s. She received total of 15 mg Lopressor IV, which did improve heart rate to 90s-low 100s. Pt was placed on 2L NC, which she is supposed to be on at home but is non-compliant. Vital signs otherwise stable. Head CT negative for acute findings, no significant changes from previous study. CXR shows pulmonary edema, small bilateral pleural effusions and a 2.7 cm nodular opacity in the RUL. EKG shows a -fib with RVR. Creatinine elevated above baseline at 1.5, BUN elevated at 38 above baseline. Cardiac enzymes negative. Encephalopathy of unknown etiology--does not appear to have infection, afebrile and without leukocytosis, ?related to tachyarrhythmia -Admitted to telemetry -B12, folate, ammonia WNL -Improving to baseline per -Fall and aspiration precautions A-fib with RVR--still tachycardic -Cardiology consulted -Increased toprol to 75 mg PO BID, digoxin 125 mcg PO q2d, additional digoxin dose given 04/12, cautious to give too much dig due to renal impairment -Digoxin level subtherapeutic at 0.6 -Lopressor 5 mg IV q4h prn tachycardia >120 bpm -Pt not on anticoagulation due to h/o life-threatening GI bleed Healing sacral pressure ulcer stage 2 Pulmonary edema, ?acute exacerbation of chronic diastolic CHF -Received 1 dose Lasix 40 mg IV in ED -Barnes catheter in place -Hold further Lasix for now due to PRISCILLA, continue to monitor -Daily weights, strict I's and O's -Tachycardia may be contributing to pulmonary edema -Repeat echo. Last echo May 2016 had preserved LVEF of 60-55%, no WMA PRISCILLA on CKD stage III--baseline creatinine 1.0-1.2 -Creatinine 1.5 -->1.7-->1.9, will get CXR to assess pulm edema, may need gentle hydration -Pt given 500 cc NSS bolus in ED, then Lasix 40 mg IV x1 -Hold home Lasix for now and continue to monitor. HTN--stable -Toprol as above Megaloblastic anemia--stable -Hgb WNL at 13.5 -Continue ferrous sulfate 325 mg PO, B12 and folate supplement when able to safely take PO H/o biliary stent, GERD--biliary stent removed in October 2016 per outpatient records -Continue Protonix 40 mg PO qd and ursodiol 300 mg PO BID when taking PO DVT prophylaxis -Heparin 5000 units SC q12h for now, stop if any s/s bleeding -LUPE Cisneros Code Status -Level V, DO NOT RESUSCITATE
--- NOTE | 2017-04-12 14:09 | DIAGNOSTIC IMAGING REPORT ---
CHEST ONE VIEW PORTABLE HISTORY: Pulmonary edema. Short of breath. COMPARISON: Chest 04/10/2017. FINDINGS: Rotated study. The pulmonary edema has slightly improved. Small bilateral pleural effusions and bibasilar densities persist. The heart is stable in size. Severe degenerative changes within the bilateral shoulders. IMPRESSION: Slight improvement in the pulmonary edema. Small bilateral pleural effusions and bibasilar densities persist. Electronically signed by: Alejandro Carey M.D. 04/12/2017 2:08 PM Dictated Date/Time: 04/12/2017 2:06 PM
[2017-04-12] MEDS: DIGOXIN 0.125 MG TAB PO SCH (16:39)
[2017-04-12] MEDS: METOPROLOL SUCC 25MG EXT REL TAB PO SCH (20:10)
[2017-04-13] VITALS (10 sets, daily range): BP systolic 114–137; BP diastolic 72–90; PULSE 66–96; TEMP 35.5–36.9; O2SAT 92–99
[2017-04-13] MEDS: HEPARIN SOD 5000 UNIT/0.5 ML CARP SQ SCH ×3 (05:58→21:13)
[2017-04-13 07:07] LABS: HEMATOCRIT 38.6 % (37-47); MEAN CELL VOLUME 108.1 fL (80-100); MEAN CORPUSCULAR HEMOGLOBIN 33.6 pg (25-34); MEAN CORPUSCULAR HGB CONC 31.1 g/dl (32-36); PLATELET COUNT 154 K/uL (130-400); RED BLOOD COUNT 3.57 M/uL (4.2-5.4); WHITE BLOOD COUNT 8.07 K/uL (4.8-10.8)
[2017-04-13 07:40] LABS: BUN/CREATININE RATIO 29.7 (10-20); CALCIUM 8.5 mg/dl (8.5-10.1); CREATININE 1.4 mg/dl (0.60-1.20)
[2017-04-13] MEDS: LACTOBACILLUS ACIDOPHILUS (FLORANEX) TAB PO SCH ×3 (08:35→16:39)
[2017-04-13] MEDS: CYANOCOBALAMIN 500 MCG TAB (VIT B-12) PO SCH (08:35)
[2017-04-13] MEDS: FERROUS SULFATE 325 MG TAB PO SCH (08:35)
[2017-04-13] MEDS: POTASSIUM CHLORIDE 10 MEQ TABCR PO SCH (08:35)
[2017-04-13] MEDS: METOPROLOL SUCC 25MG EXT REL TAB PO SCH ×2 (08:36→21:07)
[2017-04-13] MEDS: URSODIOL 300 MG CAP PO SCH ×2 (08:36→21:07)
[2017-04-13] MEDS: PANTOprazole SOD 40 MG TAB PO SCH (08:36)
--- NOTE | 2017-04-13 09:55 | CARDIOLOGY PROGRESS NOTE ---
DATE: 04/13/2017 DATE: 04/13/2017 SUBJECTIVE: Mrs. Salter is resting comfortably in bed without complaints of chest pain, dyspnea, or palpitations. She is anxious for hospital discharge. OBJECTIVE: VITAL SIGNS: Blood pressure 135/75 with an irregular pulse of 80. Respiratory rate is 18. The patient is afebrile at 36.3 degrees Celsius. Saturations 95% on 3 liters nasal cannula. NECK: Supple with full carotid upstrokes. No obvious bruits. Jugular venous pressure is flat at 90 degrees. CARDIOVASCULAR EXAMINATION: Reveals an irregular regular rhythm with a 2/6 basal systolic ejection murmur. LUNGS: Clear without rales, rhonchi, or wheezes. ABDOMEN: Soft and nontender without bruits. EXTREMITIES: Reveal intact radial artery pulses bilaterally. There is no peripheral edema. LABORATORY DATA: CBC notes a hemoglobin of 12.0, hematocrit 38.6, white count 8.0, platelet count 154,000. Electrolytes note a sodium of 140, potassium 4.0, chloride 105, bicarb 31, BUN 42, creatinine 1.4, glucose 94. night monitor notes atrial fibrillation with a controlled ventricular response. IMPRESSION AND PLAN: 1. Paroxysmal atrial fibrillation -- ventricular response now well controlled after a dose of intravenous digoxin and increase in her metoprolol succinate to 75 mg b.i.d. She will not be anticoagulated chronically as she has a history of life threatening GI bleeds. 2. Diastolic congestive heart failure -- patient well compensated at this time. 3. Mild left ventricular dysfunction -- with ejection fraction of 40-45%. 4. Aortic valve disease -- with mild aortic insufficiency and moderate aortic valve sclerosis without significant stenosis. 5. Mitral valve disease - with at least moderate mitral regurgitation. 6. Hypertension -- controlled. 7. Hypercholesterolemia. 8. Chronic renal insufficiency. 9. Parkinson's disease.
--- NOTE | 2017-04-13 11:42 | Progress Note ---
Subjective Date of Service: Apr 13, 2017. Subjective Pt evaluation today including: conversation w/ patient, conversation w/ family , chart review Pt has no concerns today. Pt denies fever, SOB, chest pain, abd pain, n/v/c/d, LE pain or swelling. is present and states she is pretty much at her baseline. He states that he is planning to take her home and has been managing her at her current functional status for some time. Nursing notes that pt's skin is in excellent condition other than the one sacral decub. She is eating well. She does seem a bit forgetful and confused at times, but does well otherwise. Problem List Medical Problems: (1) Atrial fibrillation Status: Chronic (2) Change in mental status Status: Acute (3) CHF (congestive heart failure) Status: Acute (4) Coagulopathy Status: Acute (5) Dehydration Status: Acute (6) Diarrheal disease Status: Acute (7) Heme positive stool Status: Acute (8) Pneumonia involving left lung Status: Acute (9) Pulmonary edema Status: Acute (10) Right lower lobe pneumonia Status: Acute (11) TIA (transient ischemic attack) Status: Acute Review of Systems All Other Systems: Reviewed and Negative Objective Vital Signs Date Time Temp Pulse Resp B/P (MAP) Pulse Ox O2 Delivery O2 Flow Rate FiO2 04/13/17 11:08 36.4 95 18 128/72 (90) 92 Nasal Cannula 3.0 04/13/17 08:00 95 Nasal Cannula 2.0 04/13/17 07:21 36.3 79 18 135/75 (95) 95 Nasal Cannula 3.0 04/13/17 04:57 36.3 84 18 114/74 (87) 94 2.0 04/13/17 04:00 Nasal Cannula 2.0 04/13/17 00:00 Nasal Cannula 2.0 04/12/17 23:20 36.3 96 16 131/85 (100) 99 Nasal Cannula 2.0 04/12/17 20:03 96 Nasal Cannula 04/12/17 20:00 36.5 99 18 114/70 (85) 91 Nasal Cannula 3.0 04/12/17 16:39 68 04/12/17 16:20 36.4 76 24 127/79 (95) 98 Nasal Cannula 3.0 04/12/17 16:00 96 Nasal Cannula 04/12/17 13:57 36.4 93 16 121/79 (93) 96 2.0 04/12/17 13:48 36.4 101 20 95 2.0 04/12/17 12:00 95 Nasal Cannula 2.0 Physical Exam General Appearance: WD/WN, no apparent distress Eyes: normal inspection, EOMI ENT: hearing grossly normal Neck: supple Respiratory/Chest: normal breath sounds, no respiratory distress Cardiovascular: regular rate, rhythm, no edema Abdomen: non tender, soft Extremities: non-tender, no pedal edema Neurologic/Psychiatric: alert, + pertinent finding (answers questions, speech is clear) Skin: normal color, warm/dry Laboratory Results Last 24 Hours Test 04/13/17 06:38 White Blood Count 8.07 K/uL Red Blood Count 3.57 M/uL Hemoglobin 12.0 g/dL Hematocrit 38.6 % Mean Corpuscular Volume 108.1 fL Mean Corpuscular Hemoglobin 33.6 pg Mean Corpuscular Hemoglobin Concent 31.1 g/dl RDW Standard Deviation 61.1 fL RDW Coefficient of Variation 16.0 % Platelet Count 154 K/uL Mean Platelet Volume 13.0 fL Sodium Level 140 mmol/L Potassium Level 4.0 mmol/L Chloride Level 105 mmol/L Carbon Dioxide Level 31 mmol/L Anion Gap 4.0 mmol/L Blood Urea Nitrogen 42 mg/dl Creatinine 1.40 mg/dl Est Creatinine Clear Calc Drug Dose 23.4 ml/min Estimated GFR () 39.1 Estimated GFR (Non- 33.7 BUN/Creatinine Ratio 29.7 Random Glucose 94 mg/dl Calcium Level 8.5 mg/dl Assessment and Plan 86 y/o female with a history of a-fib, diastolic CHF, HTN, HLD, CKD stage III, anemia, and Parkinson's who presented to the ED on 04/10 with weakness and confusion. Pt arrived in a-fib with RVR with HR 120s-130s. She received total of 15 mg Lopressor IV, which did improve heart rate to 90s-low 100s. Pt was placed on 2L NC, which she is supposed to be on at home but is non-compliant. Vital signs otherwise stable. Head CT negative for acute findings, no significant changes from previous study. CXR shows pulmonary edema, small bilateral pleural effusions and a 2.7 cm nodular opacity in the RUL. EKG shows a -fib with RVR. Creatinine elevated above baseline at 1.5, BUN elevated at 38 above baseline. Cardiac enzymes negative. Encephalopathy of unknown etiology--does not appear to have infection, afebrile and without leukocytosis, ?related to tachyarrhythmia -Admitted to telemetry -B12, folate, ammonia WNL -Improving to baseline per -Fall and aspiration precautions A-fib with RVR--still tachycardic -Cardiology consulted -Increased toprol to 75 mg PO BID, digoxin 125 mcg PO q2d, additional digoxin dose given 04/12, cautious to give too much dig due to renal impairment -Digoxin level subtherapeutic at 0.6 -Lopressor 5 mg IV q4h prn tachycardia >120 bpm -Pt not on anticoagulation due to h/o life-threatening GI bleed Healing sacral pressure ulcer stage 2 Pulmonary edema, ?acute exacerbation of chronic diastolic CHF -Received 1 dose Lasix 40 mg IV in ED -Mckeon catheter in place -Home Lasix held due to PRISCILLA, resume on 04/13 and monitor renal function -Daily weights, strict I's and O's -Tachycardia may be contributing to pulmonary edema -Last echo May 2016 had preserved LVEF of 60-55%, no WMA, and elevated RVSP, however repeat on admission with EF 40-45% and stable elevated RVSP PRISCILLA on CKD stage III--baseline creatinine 1.0-1.2 -Creatinine 1.5 -->1.7-->1.9, will get CXR to assess pulm edema, may need gentle hydration -Pt given 500 cc NSS bolus in ED, then Lasix 40 mg IV x1 -Resume home Lasix on 04/13 and monitor D/C mckeon on 04/13 and monitor UOP Abn UA: noted on admission however cx not done at that time Cx pending Pt is incontinent at baseline and UTI may be playing a role in encephalopathy HTN--stable -Toprol as above Megaloblastic anemia--stable -Hgb WNL at 13.5 -Continue ferrous sulfate 325 mg PO, B12 and folate supplement when able to safely take PO H/o biliary stent, GERD--biliary stent removed in October 2016 per outpatient records -Continue Protonix 40 mg PO qd and ursodiol 300 mg PO BID when taking PO DVT prophylaxis -Heparin 5000 units SC q12h for now, stop if any s/s bleeding -LUPE ravi and SCDs Code Status -Level V, DO NOT RESUSCITATE
[2017-04-13] MEDS: FUROSEMIDE 40 MG TAB PO SCH (11:50)
[2017-04-14 04:24] VITALS: BP 109/63; PULSE 86; TEMP 36.4; O2SAT 94
[2017-04-14] MEDS: HEPARIN SOD 5000 UNIT/0.5 ML CARP SQ SCH ×3 (05:38→21:10)
[2017-04-14 07:23] LABS: BUN/CREATININE RATIO 21.2 (10-20); CALCIUM 8.3 mg/dl (8.5-10.1); CREATININE 1.6 mg/dl (0.60-1.20); POTASSIUM 4.1 mmol/L (3.5-5.1)
[2017-04-14 07:29] VITALS: BP 103/64; PULSE 86; TEMP 36.5; O2SAT 93
[2017-04-14] MEDS: URSODIOL 300 MG CAP PO SCH ×2 (08:34→21:05)
[2017-04-14] MEDS: CYANOCOBALAMIN 500 MCG TAB (VIT B-12) PO SCH (08:37)
[2017-04-14] MEDS: METOPROLOL SUCC 25MG EXT REL TAB PO SCH ×2 (08:37→21:05)
[2017-04-14] MEDS: FUROSEMIDE 40 MG TAB PO SCH (08:38)
[2017-04-14] MEDS: POTASSIUM CHLORIDE 10 MEQ TABCR PO SCH (08:38)
[2017-04-14] MEDS: FERROUS SULFATE 325 MG TAB PO SCH (08:38)
[2017-04-14] MEDS: LACTOBACILLUS ACIDOPHILUS (FLORANEX) TAB PO SCH ×3 (08:39→16:57)
[2017-04-14] MEDS: PANTOprazole SOD 40 MG TAB PO SCH (08:39)
--- NOTE | 2017-04-14 10:51 | CARDIOLOGY PROGRESS NOTE ---
DATE: 04/14/2017 DATE: 04/14/2017 SUBJECTIVE: Mrs. Salter is resting comfortably in bed without complaints of chest pain, dyspnea, or palpitations. OBJECTIVE: VITAL SIGNS: Blood pressure 103/64 with an irregular pulse of 86. Respiratory rate is 22. The patient is afebrile at 36.5 degrees Celsius. Saturations 93% on 3 liters nasal cannula. NECK: Supple with full carotid upstrokes. No obvious bruits. Jugular venous pressure is flat at 90 degrees. There is no thyromegaly. CARDIOVASCULAR EXAMINATION: Reveals an irregularly irregular rhythm with a 2/6 basal systolic ejection murmur. LUNGS: Clear without rales, rhonchi, or wheezes. ABDOMEN: Soft, nontender without bruits. EXTREMITIES: Reveal intact radial artery pulses bilaterally. There is no peripheral edema. LABORATORY DATA: Electrolytes note a sodium of 139, potassium 4.1, chloride 103, bicarb 33, BUN 34, creatinine 1.6, glucose 89. Urine culture notes a gram-negative bacilli. Monitor notes atrial fibrillation with a controlled ventricular response. IMPRESSION AND PLAN: 1. Paroxysmal atrial fibrillation -- ventricular response now well controlled on digoxin and metoprolol succinate. No chronic anticoagulation due to her history of life threatening GI bleeding. 2. Diastolic congestive heart failure -- compensated at this time. 3. Mild left ventricular dysfunction -- with ejection fraction of 40-45%. 4. Aortic valve disease -- mild aortic insufficiency with moderate aortic valve sclerosis. 5. Mitral valve disease -- at least moderate mitral regurgitation noted on echo. 6. Hypertension -- controlled. 7. Hypercholesterolemia. 8. Chronic renal insufficiency. 9. Parkinson's disease. 10. Positive urine culture.
--- NOTE | 2017-04-14 11:34 | Hospitalist Progress Note ---
Hospitalist Progress Note Date of Service Apr 14, 2017. Subjective Pt evaluation today including: conversation w/ patient, conversation w/ family ( at bedside ), physical exam, chart review, lab review, review of inpatient medication list Voiding: incontinence Patient states she is feeling well. O2 supplement off when entering room- O2 sats at 75%, O2 NC reapplied. Per , has need O2 supplement for sometime but refuses to wear it. Had home O2 at one time, but was removed from the home because she wouldn't use it. She denies any SOB or cough. +UCx- patient denies any urinary symptoms. Per , urinary incontinence is not new- likely started due to restarting Lasix. Oriented to person/place. Patient denies any fever, chills, sweats, lightheadedness, dizziness, vision changes, CP, palpitations, edema, SOB, wheezing, cough, abdominal pain, nausea, vomiting, diarrhea, urinary symptoms, melena, numbness/tingling, weakness, muscle/joint pain, anxiety/depression, active bleeding, or new skin discoloration/changes. Per , patient still slightly confused, but near baseline. Doing better today, compared to all other hospital days. 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 Medications Current Inpatient Medications Medications (Trade) Dose Ordered Sig/Michael Route Start Time Stop Time Status Last Admin Dose Admin Heparin Sodium (Porcine) (Heparin Sq 5000 Unit/0.5ml) 5,000 unit Q8 SQ 04/10/17 22:00 05/10/17 21:59 04/14/17 05:38 5,000 UNIT Acetaminophen (Tylenol Tab) 650 mg Q4H PRN PO 04/10/17 17:00 05/10/17 16:59 Al Hydrox/Mg Hydrox/Simethicone (Maalox Max Susp) 15 ml Q4H PRN PO 04/10/17 17:00 05/10/17 16:59 Magnesium Hydroxide (Milk Of Magnesia Susp) 30 ml Q12H PRN PO 04/10/17 17:00 05/10/17 16:59 Ondansetron HCl (Zofran Inj) 4 mg Q6H PRN IV 04/10/17 17:00 05/10/17 16:59 Polyethylene (Miralax Powder Packet) 17 gm DAILY PRN PO 04/10/17 17:00 05/10/17 16:59 Cyanocobalamin (Vitamin B-12 Tab) 1,000 mcg DAILY PO 04/11/17 09:00 05/11/17 08:59 04/14/17 08:37 1,000 MCG Digoxin (Lanoxin Tab) 0.125 mg Q2D@1600 PO 04/12/17 16:00 05/12/17 15:59 04/12/17 16:39 0.125 MG Ferrous Sulfate (Feosol Tab) 325 mg QAM PO 04/11/17 09:00 05/11/17 08:59 04/14/17 08:38 325 MG Folic Acid (Folvite Tab) 1 mg QAM PO 04/11/17 09:00 05/11/17 08:59 04/14/17 08:36 1 MG Pantoprazole Sodium (Protonix Tab) 40 mg QAM PO 04/11/17 09:00 05/11/17 08:59 04/14/17 08:39 40 MG Ursodiol (Actigall Cap) 300 mg BID PO 04/10/17 21:00 05/10/17 20:59 04/14/17 08:34 300 MG Potassium Chloride (Klor-Con M10) 10 meq DAILY PO 04/11/17 09:00 05/11/17 08:59 04/14/17 08:38 10 MEQ Lactobacillus Acidophilus (Floranex Tab) 4 tab TIDM PO 04/10/17 18:30 05/10/17 18:29 04/14/17 08:39 4 TAB Metoprolol Tartrate (Lopressor Iv) 5 mg Q4H PRN IV 04/10/17 17:00 05/10/17 16:59 Metoprolol Succinate (Toprol Xl Tab) 75 mg BID PO 04/12/17 21:00 05/10/17 20:59 04/14/17 08:37 75 MG Furosemide (Lasix Tab) 40 mg DAILY PO 04/13/17 10:45 05/13/17 10:44 04/14/17 08:38 40 MG Objective Vital Signs Date Time Temp Pulse Resp B/P (MAP) Pulse Ox O2 Delivery O2 Flow Rate FiO2 04/14/17 08:00 Nasal Cannula 3.0 04/14/17 07:29 36.5 86 22 103/64 (77) 93 04/14/17 04:24 36.4 86 16 109/63 (78) 94 3.0 04/14/17 03:44 Nasal Cannula 3.0 04/13/17 23:45 Nasal Cannula 3.0 04/13/17 23:45 35.5 87 16 135/90 (105) 96 3.0 04/13/17 21:06 66 127/84 (98) 04/13/17 20:00 92 Nasal Cannula 3.0 04/13/17 19:27 36.9 91 16 125/80 (95) 99 3.0 04/13/17 16:16 36.3 96 18 137/77 (97) 97 Nasal Cannula 3.0 04/13/17 16:00 92 Nasal Cannula 3.0 Physical Exam General Appearance: no apparent distress, + thin (frail appearing ), + pertinent finding (3L O2 NC ) Eyes: PERRL ENT: hearing grossly normal Neck: supple Respiratory/Chest: lungs clear, no respiratory distress, no accessory muscle use, + decreased breath sounds (throughout, > at bases ) Cardiovascular: + systolic murmur, + irregularly irregular (rate controlled ) Abdomen: normal bowel sounds, non tender, soft Extremities: no pedal edema, no calf tenderness Neurologic/Psychiatric: alert, + disoriented (to time ) Skin: normal color, warm/dry, no rash Laboratory Results Last 24 Hours Test 04/14/17 06:03 Sodium Level 139 mmol/L Potassium Level 4.1 mmol/L Chloride Level 103 mmol/L Carbon Dioxide Level 33 mmol/L Anion Gap 3.0 mmol/L Blood Urea Nitrogen 34 mg/dl Creatinine 1.60 mg/dl Est Creatinine Clear Calc Drug Dose 20.5 ml/min Estimated GFR () 33.2 Estimated GFR (Non- 28.7 BUN/Creatinine Ratio 21.2 Random Glucose 89 mg/dl Calcium Level 8.3 mg/dl Assessment and Plan 86 y/o female with a history of a-fib, diastolic CHF, HTN, HLD, CKD stage III, anemia, and Parkinson's who presented to the ED on 04/10 with weakness and confusion. Pt arrived in a-fib with RVR with HR 120s-130s. She received total of 15 mg Lopressor IV, which did improve heart rate to 90s-low 100s. Pt was placed on 2L NC, which she is supposed to be on at home but is non-compliant. Vital signs otherwise stable. Head CT negative for acute findings, no significant changes from previous study. CXR shows pulmonary edema, small bilateral pleural effusions and a 2.7 cm nodular opacity in the RUL. EKG shows a -fib with RVR. Creatinine elevated above baseline at 1.5, BUN elevated at 38 above baseline. Cardiac enzymes negative. Encephalopathy, unknown etiology- ?secondary to tachyarrhythmia, UTI- IMPROVING : - Admitted to telemetry for cardiac monitoring - B12, folate, ammonia- WNL A-fib w/ RVR- rate now controlled: - Cardiology following - Increased Toprol to 75 mg BID, Digoxin 125 mcg PO q2d -- Digoxin level subtherapeutic at 0.6- additional dose given 04/12 - Lopressor 5 mg IV q4h PRN tachycardia >120 bpm - Not on anticoagulation due to h/o life-threatening GI bleed UCx growing gram negative bacilli: - No s/s of sepsis, no symptoms per patient- will await sensitives h/o of c. diff in 06/18- no diarrhea currently: Floranex 4 tab TID Healing sacral pressure ulcer stage 2 Pulmonary edema, ?acute exacerbation of chronic diastolic CHF- RESOLVED: - Treated w/ 1 dose Lasix 40 mg IV in ED, Barnes placed to monitor I&Os, daily weights - Resumed Lasix 40 mg daily, KCL 10 mEq daily - ECHO 04/11- * There is mild concentric left ventricular hypertrophy. * Left ventricular systolic function is mildly reduced. * The left atrium is severely dilated. * The right atrium is mildly dilated. * Mild aortic regurgitation. * Regurgitation is at least moderate and possibly severe. * There is mild to moderate tricuspid regurgitation. * Right ventricular systolic pressure is elevated at 40-50mmHg. * The inferior vena cava is mildly dilated. * Moderate size left pleural effusion. * Compared to a study from 05/2016, the LV systolic function is no longer normal. 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
[2017-04-14 12:02] VITALS: BP 105/70; PULSE 80; TEMP 36.6; O2SAT 91
[2017-04-14 15:21] VITALS: BP 144/69; PULSE 82; TEMP 36.8; O2SAT 93
[2017-04-14] MEDS: DIGOXIN 0.125 MG TAB PO SCH (15:53)
[2017-04-14 20:18] VITALS: BP 136/76; PULSE 96; TEMP 36.4; O2SAT 98
[2017-04-15 00:01] VITALS: BP 131/90; PULSE 78; TEMP 36.3; O2SAT 96
[2017-04-15 04:16] VITALS: BP 131/74; PULSE 88; TEMP 36.3; O2SAT 92
[2017-04-15] MEDS: HEPARIN SOD 5000 UNIT/0.5 ML CARP SQ SCH (05:48)
[2017-04-15 07:37] VITALS: BP 144/73; PULSE 86; TEMP 36.3; O2SAT 96
[2017-04-15] MEDS: METOPROLOL SUCC 25MG EXT REL TAB PO SCH (08:00)
[2017-04-15] MEDS: FERROUS SULFATE 325 MG TAB PO SCH (08:01)
[2017-04-15] MEDS: FUROSEMIDE 40 MG TAB PO SCH (08:01)
[2017-04-15] MEDS: LACTOBACILLUS ACIDOPHILUS (FLORANEX) TAB PO SCH ×2 (08:01→12:06)
[2017-04-15] MEDS: POTASSIUM CHLORIDE 10 MEQ TABCR PO SCH (08:01)
[2017-04-15] MEDS: PANTOprazole SOD 40 MG TAB PO SCH (08:01)
[2017-04-15] MEDS: CYANOCOBALAMIN 500 MCG TAB (VIT B-12) PO SCH (08:02)
[2017-04-15] MEDS: URSODIOL 300 MG CAP PO SCH (08:02)
[2017-04-15 08:27] LABS: BLOOD UREA NITROGEN 31 mg/dl (7-18); BUN/CREATININE RATIO 23.5 (10-20); CALCIUM 8.7 mg/dl (8.5-10.1); CARBON DIOXIDE 36 mmol/L (21-32); CHLORIDE 101 mmol/L (98-107); GLUCOSE 91 mg/dl (70-99); SODIUM 139 mmol/L (136-145)
[2017-04-15] MEDS ORDERED: CEPHALEXIN MONOHYDRATE 500 MG CAP PO SCH (09:00)
[2017-04-15] MEDS ORDERED: TPRSR/25 PO (09:55)
[2017-04-15] MEDS ORDERED: KFL500 PO ×2 (09:55→10:21)
[2017-04-15 10:18] VITALS: O2SAT 76
[2017-04-15] MEDS ORDERED: TPRSR25 PO (10:22)
--- NOTE | 2017-04-15 10:35 | Discharge Instructions ---
Discharge Instructions Date of Service Apr 15, 2017. Admission Reason for Admission: Atrial Fibrillation With Rvr, Tia Discharge Discharge Diagnosis / Problem: atrial fibrillation with RVR Discharge Goals Goal(s): Decrease discomfort, Improve function, Increase independence, Improve disease control, Improve nutritional status, Learn about illness, Diagnostic testing, Therapeutic intervention, Prevent Disease Progression Activity Recommendations Activity Limitations: resume your previous activity . Instructions / Follow-Up Instructions / Follow-Up Urinary tract infection: KEFLEX 250 mg BY MOUTH TWICE PER DAY UNTIL PRESCRIPTION IS COMPLETE We have given you 2 pills of Keflex for tonight (04/15) and tomorrow morning (04/16) until your pharmacy opens Atrial fibrillation with RVR (irregular heart beat with fast heart rate): METOPROLOL 25 mg HAS BEEN INCREASED TO METOPROLOL 75 mg BY MOUTH TWICE PER DAY Until your pharmacy opens tomorrow (Sunday 04/15), please take 3 tablets of your Metoprolol 25 mg to equal 75 mg ALL OF YOUR PRESCRIPTIONS HAVE BEEN SENT TO [facility] During your hospital stay, you have required oxygen supplementation. When taking your off the oxygen, your saturations fall to 76%- this qualifies you for home oxygen. YOU WILL NEED 3L O2 OXYGEN SUPPLEMENT AT ALL TIMES IT IS VERY IMPORTANT YOU WEAR YOUR OXYGEN INSTRUCTED FOLLOW-UPS: Please follow-up with your PCP within 5-7 days A referral has been placed. If you do not hear of an appointment in the next 24 hours, please call the office to confirm appointment Please follow-up/keep all of your subspecialty appointments Current Hospital Diet Patient's current hospital diet: AHA Diet (Heart Healthy) Discharge Diet Recommended Diet: AHA Diet (Heart Healthy) Procedures Procedures Performed: Head CT, chest x-ray, echocardiogram Pending Studies Studies pending at discharge: no Laboratory Results Lipid Panel Test 03/12/17 09:40 Range/Units Triglycerides Level 120 0-150 mg/dl Cholesterol Level 141 0-200 mg/dl HDL Cholesterol 35 mg/dl Cholesterol/HDL Ratio 4.0 LDL Cholesterol, Calculated 82 mg/dl Medical Emergencies . Who to Call and When: Medical Emergencies: If at any time you feel your situation is an emergency, please call 911 immediately. . Non-Emergent Contact Non-Emergency issues call your: Primary Care Provider . . "Provider Documentation" section prepared by Jenny Bagley. . VTE Core Measure Inpt VTE Proph given/why not?: Unfractionated heparin SQ, TLeslieEArelis. Kylah, SCD 's
--- NOTE | 2017-04-15 10:45 | Discharge Summary ---
Discharge Summary Date of Service Apr 15, 2017. Discharge Summary Admission Date: Apr 10, 2017 at 17:15 Discharge Date: Apr 15, 2017 Discharge Disposition: Home with services Principal Diagnosis: A.fib with RVR Problems/Secondary Diagnoses: A-fib w/ RVR UTI h/o of c. diff in 06/18 Healing sacral pressure ulcer stage 2 Pulmonary edema, acute exacerbation of chronic diastolic CHF Hypoxia PRISCILLA on CKD stage III HTN Megaloblastic anemia h/o biliary stent GERD Immunizations: Have You Had Influenza Vaccine: No Influenza Vaccine Date: Jul 25, 2007 History of Tetanus Vaccine?: Unknown History of Pneumococcal: Yes Pneumococcal Date: Jun 02, 2011 History of Hepatitis B Vaccine: Unknown Procedures: HEAD CT NONCONTRAST CT DOSE: 1715.57 mGycm HISTORY: Pt c/o slurred speech TECHNIQUE: Multiaxial CT images of the head were performed without the use of intravenous contrast. Automated exposure control was utilized for this study. A dose lowering technique was utilized adhering to the principles of ALARA. Comparison: Head CT 12/10/2013. Findings: The mastoid air cells are clear. Near-complete opacification and calcifications within the left frontal sinus and left anterior ethmoid air cells. This is similar to the prior study. The calvarium and skull base are intact. There is no mass, hematoma, midline shift, acute infarct. White matter hypodensity is nonspecific but suggestive of microvascular ischemic change. The ventricles and sulci demonstrate mild age-related involutional changes. Impression: No significant change compared to the prior study. No acute intracranial abnormality. Chronic paranasal sinus disease as described above. Electronically signed by: Alejandro Carey M.D. 04/10/2017 1:55 PM Dictated Date/Time: 04/10/2017 1:51 PM The status of this report is Signed. Draft = Not yet reviewed or approved by Radiologist. Signed = Reviewed and approved by Radiologist. CHEST ONE VIEW PORTABLE CLINICAL HISTORY: Slurred speech. Altered mental status. Dyspnea. COMPARISON STUDY: Chest radiograph July 19, 2016. FINDINGS: The patient is rotated. No pneumothorax is present. There are small bilateral pleural effusions. 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 Mild cardiomegaly is unchanged. Interstitial thickening is noted. There is a 2.7 cm nodular opacity projecting over the right lung apex which may be artifactual. IMPRESSION: 1. Interstitial thickening which suggests pulmonary edema. An infectious process could appear similar but is considered less likely. 2. Small bilateral pleural effusions. 3. 2.7 cm nodular opacity projecting over the right upper lung. This is probably artifactual although airspace disease could appear similar. Radiographic follow-up to ensure resolution is recommended. Electronically signed by: Darshan Rollins M.D. 04/10/2017 1:37 PM Dictated Date/Time: 04/10/2017 1:35 PM The status of this report is Signed. Draft = Not yet reviewed or approved by Radiologist. Signed = Reviewed and approved by Radiologist CHEST ONE VIEW PORTABLE HISTORY: Pulmonary edema. Short of breath. COMPARISON: Chest 04/10/2017. FINDINGS: Rotated study. The pulmonary edema has slightly improved. Small bilateral pleural effusions and bibasilar densities persist. The heart is stable in size. Severe degenerative changes within the bilateral shoulders. IMPRESSION: Slight improvement in the pulmonary edema. Small bilateral pleural effusions and bibasilar densities persist. Electronically signed by: Alejandro Carey M.D. 04/12/2017 2:08 PM Dictated Date/Time: 04/12/2017 2:06 PM The status of this report is Signed. Draft = Not yet reviewed or approved by Radiologist. Signed = Reviewed and approved by Radiologist ECHOCARDIOGRAM: Interpretation Summary * Name: PHYLLIS FRANCO Study Date: 04/11/2017 06:55 AM BP: 124/79 mmHg * Patient Location: [facility]\S\1 HR: 107 * : 1930 (M/d/yyyy) Gender: Female Height: 63 in * Age: 86 yrs Ethnicity: [place] Weight: 133 lb * Ordering Physician: Rose Espinosa * Referring Physician: Self, Referred * Performed By: Frances Mishra, [facility] * * Reason For Study: A-FIB / CHF / POSS TIA * BSA: 1.6 m2 * -- Conclusions -- * There is mild concentric left ventricular hypertrophy. * Left ventricular systolic function is mildly reduced. * The left atrium is severely dilated. * The right atrium is mildly dilated. * Mild aortic regurgitation. * Regurgitation is at least moderate and possibly severe. * There is mild to moderate tricuspid regurgitation. * Right ventricular systolic pressure is elevated at 40-50mmHg. * The inferior vena cava is mildly dilated. * Moderate size left pleural effusion. * Compared to a study from 05/2016, the LV systolic function is no longer normal. Procedure Details * A complete two-dimensional transthoracic echocardiogram was performed (2D, M- mode, Doppler and color flow Doppler). Left Ventricle * The left ventricle is grossly normal size. * There is mild concentric left ventricular hypertrophy. * Left ventricular systolic function is mildly reduced. * Ejection Fraction = 40-45%. Right Ventricle * The right ventricle is normal in size and function. Atria * The left atrium is severely dilated. * The right atrium is mildly dilated. Mitral Valve * Calcified mitral apparatus. * Regurgitation is at least moderate and possibly severe. Tricuspid Valve * The tricuspid valve is not well visualized, but is grossly normal. * There is mild to moderate tricuspid regurgitation. * Right ventricular systolic pressure is elevated at 40-50mmHg. Aortic Valve * Aortic valve sclerosis moderate, without significant aortic valvular stenosis. * Not well-characterized, but no evidence of stenosis. * Mild aortic regurgitation. Pericardium/Pleural * There is no pericardial effusion. * Moderate size left pleural effusion. Great Vessels The inferior vena cava is mildly dilated Consultations: Cardiology Medication Reconciliation New Medications: Cephalexin (Keflex) 500 Mg Cap 250 MG PO BID for 4 Days, #4 CAP Metoprolol Succinate (Metoprolol Succinate ER) 25 Mg Tabcr 75 MG PO BID for 30 Days, #180 TABS Changed Medications: Metoprolol Succinate (Metoprolol Succinate ER) 25 Mg Tabcr 75 MG PO BID for 30 Days, #180 TABS (Changed from: 25 MG) Continued Medications: Cyanocobalamin (Vitamin B-12) 500 Mcg Tab 1000 MCG PO DAILY Digoxin (Digoxin) 0.125 Mg Tab 0.125 MG PO Q2D@1600 for 30 Days, TAB Ferrous Sulfate (Ferrous Sulfate) 325 Mg Tab 325 MG PO QAM for 30 Days, TAB Folic Acid (Folic Acid) 1 Mg Tab 1 MG PO QAM for 30 Days, TAB Furosemide (Lasix) 40 Mg Tab 40 MG PO DAILY Pantoprazole (Pantoprazole Sodium) 40 Mg Tab 40 MG PO QAM for 30 Days, TAB Potassium Chloride (Potassium Chloride Cr) 10 Meq Tab 10 MEQ PO DAILY Probiotic Product (Acidophilus) 1 Chw Chw 1 TAB PO DAILY Ursodiol (Ursodiol) 300 Mg Cap 300 MG PO BID Discharge Exam Review of Systems: Constitutional: No fever, No chills, No sweats, No weakness, No fatigue ENT: No hearing loss Respiratory: No cough, No shortness of breath, No hemoptysis Cardiovascular: No chest pain, No edema, No palpitations Abdomen: No pain, No nausea, No vomiting, No diarrhea, No constipation Musculoskeletal: No joint pain, No muscle pain, No swelling, No calf pain Genitourinary - Female: No dysuria, No hematuria Neurologic: No weakness, No numbness/tingling Psychiatric: No depression symptoms, No anxiety Hematologic / Lymphatic: No abnormal bleeding/bruising Integumentary: No rash, No itch, No new/changing skin lesions Physical Exam: General Appearance: no apparent distress, + thin (frail ), + pertinent finding (3L NC 02 ) Eyes: normal inspection, PERRL ENT: hearing grossly normal Neck: supple Respiratory/Chest: lungs clear, no respiratory distress, no accessory muscle use, + decreased breath sounds (throughout all lung mtz ) Cardiovascular: + irregularly irregular (rate controlled) Abdomen / GI: normal bowel sounds, non tender, soft Extremities: no calf tenderness, no pedal edema Neurologic/Psychiatric: alert, normal mood/affect Skin: normal color, warm/dry, no rash Hospital Course Admission H&P: This is an 86 y/o female with a history of a-fib, diastolic CHF, HTN, HLD, CKD stage III, anemia of chronic disease, and Parkinson's who presented to the ED on 04/10 with weakness and confusion. The patient is completely disoriented during my examination and alone at beside. Attempted to call but no response. Unable to obtain reliable ROS from patient due to mental status. She denies any complaints currently. Per ED physician, patient had been complaining of persistent generalized weakness for the last few days, and the had noted worsening disorientation/confusion above baseline. The patient may have had some slurred speech that appeared to have resolved. The patient is reportedly non-complaint with her supplemental oxygen at home and possibly with her medications as well. Physical Exam Vital Signs Date Time Temp Pulse Resp B/P (MAP) Pulse Ox O2 Delivery O2 Flow Rate FiO2 04/10/17 16:16 Room Air 04/10/17 15:32 100 24 132/83 95 Nasal Cannula 2.0 04/10/17 14:40 115 118/101 04/10/17 14:20 118 24 137/101 04/10/17 14:07 100 24 128/88 95 Nasal Cannula 2.0 04/10/17 14:05 105 24 114/83 96 Nasal Cannula 2.0 04/10/17 13:57 130 28 142/104 95 Nasal Cannula 2.0 04/10/17 13:23 116 24 144/110 98 04/10/17 12:40 97 Nasal Cannula 2.0 04/10/17 11:55 124 04/10/17 11:48 36.7 128 28 125/91 88 Room Air General appearance: +Lethargic. Well-developed, well-nourished, no apparent distress Head: Normocephalic, atraumatic Eyes: +Exam limited by pt condition/cooperation. Normal inspection, PERRL, EOMI ENT: Normal ENT inspection, hearing grossly normal, pharynx normal Neck: Supple, no JVD, trachea midline Respiratory/Chest: +Crackles bilaterally from bases to mid lung. Normal breath sounds, no respiratory distress Cardiovascular: +Irregularly irregular, tachycardic. No gallop, no murmur Abdomen/GI: Normal bowel sounds, non-tender, soft Extremities/Musculoskeletal: +Trace pitting edema. Normal inspection, no calf tenderness Neurological/Psych: +Disoriented x 3. Able to tell me her name but told me an incorrect day and year. Pt falling asleep during my exam but easily rousable. Normal mood/affect, oriented to name only Skin: Normal color, warm/dry, no rash Encephalopathy, unknown etiology- ?secondary to tachyarrhythmia, UTI- IMPROVING : - Admitted to telemetry for cardiac monitoring - B12, folate, ammonia- WNL Hospital Course: A-fib w/ RVR- rate now controlled: - Cardiology following - Increased Toprol to 75 mg BID, Digoxin 125 mcg PO q2d -- Digoxin level subtherapeutic at 0.6- additional dose given 04/12 - Lopressor 5 mg IV q4h PRN tachycardia >120 bpm - Not on anticoagulation due to h/o life-threatening GI bleed UCx growing Proteus mirabilis: - Keflex 250 mg BID x5 days - Per , got a mild rash with Penicillin (no airway compromise)- believes has taken Cephalosporin in past with no issues- per records, taken Cephalosporins with no documented adverse reactions. h/o of c. diff in 06/18- no diarrhea currently: Floranex 4 tab TID Healing sacral pressure ulcer stage 2 Pulmonary edema, ?acute exacerbation of chronic diastolic CHF- RESOLVED: - Treated w/ 1 dose Lasix 40 mg IV in ED, Barnes placed to monitor I&Os, daily weights - Resumed Lasix 40 mg daily, KCL 10 mEq daily - ECHO 04/11- * There is mild concentric left ventricular hypertrophy. * Left ventricular systolic function is mildly reduced. * The left atrium is severely dilated. * The right atrium is mildly dilated. * Mild aortic regurgitation. * Regurgitation is at least moderate and possibly severe. * There is mild to moderate tricuspid regurgitation. * Right ventricular systolic pressure is elevated at 40-50mmHg. * The inferior vena cava is mildly dilated. * Moderate size left pleural effusion. * Compared to a study from 05/2016, the LV systolic function is no longer normal. Hypoxia at 76% on RA: Needs home O2 supplement 3L at all times PRISCILLA on CKD stage III- baseline creatinine 1.0-1.2- STABLE: - Pt given 500 cc NSS bolus in ED, then Lasix 40 mg IV x1 - Lasix 40 mg daily held at admission- restarted on 04/13 - Follow PRP HTN- STABLE: Toprol as above Megaloblastic anemia- STABLE: - Continue Ferrous sulfate 325 mg PO, B12/folate supplement - Follow CBC h/o biliary stent, GERD- biliary stent removed in October 2016 per outpatient records: Protonix 40 mg qd, Ursodiol 300 mg BID GI prophylaxis: Protonix DVT prophylaxis: Heparin SQ TID Code Status: LEVEL V, DNR Dispo: Discharge to home w/ [facility] Total Time Spent: Greater than 30 minutes This includes examination of the patient, discharge planning, medication reconciliation, and communication with other providers. Discharge Instructions Please refer to the electronic Patient Visit Report (Discharge Instructions) for additional information. Follow-Up Please follow-up with your PCP within 5-7 days Please follow-up/keep all of your subspecialty appointments Additional Copies To Shelly Ordoñez C.R.N.P
[2017-04-15] MEDS ORDERED: CEPH-571 PO (10:57)
[2017-04-15] MEDS ORDERED: CEPHALEXIN MONOHYDRATE 250 MG CAP PO SCH ×2 (11:30→21:00)
== END 2017-04-15 13:45 | disposition home health service (06) | DRG 291 ==
LOC: EDBD 11:41 → C.EDC 11:43 → C.2T 17:15 → ENRESERV 17:24 → C.MED 04-12 13:46
PROVIDERS: ADMIT Internal Medicine; ATTEND Hospitalist
PROC: 0T9B70Z Drainage of Bladder with Drainage Device, Via Natural or Artificial Opening (ICD-10-PCS; principal; 2017-04-10)
DX: I13.0 Hypertensive heart and chronic kidney disease with heart failure and stage 1 through stage 4 chronic kidney disease, or unspecified chronic kidney disease (principal); I50.33 Acute on chronic diastolic (congestive) heart failure; G93.40 Encephalopathy, unspecified; N17.9 Acute kidney failure, unspecified; N39.0 Urinary tract infection, site not specified; I48.0 Paroxysmal atrial fibrillation; L89.152 Pressure ulcer of sacral region, stage 2; N18.3 Chronic kidney disease, stage 3 (moderate); D53.1 Other megaloblastic anemias, not elsewhere classified; K21.9 Gastro-esophageal reflux disease without esophagitis; G20 Parkinson's disease; E78.00 Pure hypercholesterolemia, unspecified; I08.0 Rheumatic disorders of both mitral and aortic valves; Z66 Do not resuscitate; Z91.19 Patient's noncompliance with other medical treatment and regimen; Z86.19 Personal history of other infectious and parasitic diseases; Z90.49 Acquired absence of other specified parts of digestive tract; Z90.81 Acquired absence of spleen; Z90.710 Acquired absence of both cervix and uterus; Z79.899 Other long term (current) drug therapy; Z88.0 Allergy status to penicillin; Z88.7 Allergy status to serum and vaccine

== ENCOUNTER → 2017-04-20 | Outpatient (CLI) | payer OTHER ==
[~2017-04-20] MED LIST changes: +ACT300 PO; +CEPH-571 PO; +FRS/40 PO; -FURO40TA3 PO; +POTA10TA30 PO; -QSTP PO; +TPRSR/25 PO
[2017-04-20 13:07] LABS: BLOOD UREA NITROGEN 29 mg/dl (7-18); GLUCOSE 87 mg/dl (70-99)
[2017-04-20 13:08] LABS: BUN/CREATININE RATIO 26.2 (10-20); CALCIUM 9.1 mg/dl (8.5-10.1); CARBON DIOXIDE 39 mmol/L (21-32); CHLORIDE 100 mmol/L (98-107); POTASSIUM 4.2 mmol/L (3.5-5.1); SODIUM 140 mmol/L (136-145)
== END | disposition home or self-care (01) ==
LOC: C.LABSPEC 13:08
PROVIDERS: ATTEND Nurse Practitioner
DX: I48.91 Unspecified atrial fibrillation (principal); N28.9 Disorder of kidney and ureter, unspecified

== ENCOUNTER → 2017-06-21 | Outpatient (CLI) | payer OTHER ==
[2017-06-21 17:35] LABS: BLOOD UREA NITROGEN 21 mg/dl (7-18); BUN/CREATININE RATIO 18.4 (10-20); CALCIUM 9.1 mg/dl (8.5-10.1); CARBON DIOXIDE 30 mmol/L (21-32); CHLORIDE 106 mmol/L (98-107); CREATININE 1.16 mg/dl (0.60-1.20); GLUCOSE 99 mg/dl (70-99); POTASSIUM 4.3 mmol/L (3.5-5.1); SODIUM 141 mmol/L (136-145)
== END | disposition home or self-care (01) ==
LOC: C.LABPVFM 13:20
PROVIDERS: ATTEND Nurse Practitioner
DX: I11.0 Hypertensive heart disease with heart failure (principal); I50.9 Heart failure, unspecified

== ENCOUNTER 2018-10-05 11:43 | Inpatient (IN) ==
--- NOTE | 2018-10-05 12:17 | Emergency Department Note ---
ED Provider Note Chief complaint: Right ankle pain. HPI: This 88-year-old white female presents to the emergency room with her , for evaluation of her right ankle. The patient injured the ankle Yadiel night during a transfer. She relies entirely on her and does not walk. He has her in an electric lift chair. He was transferring her from the chair to the bedside commode when she stiffened and he lost his balance. He fell, and she fell on top of him. He had difficulty getting her off of him. She did not complain of significant ankle pain at that time. Yesterday he noticed that her foot was swollen and discolored. He wanted to bring her to the ED for evaluation but she refused. This morning the swelling and discoloration are worse. He brought her here for evaluation. Pain is primarily over the lateral portion of the ankle. She denies any numbness or tingling. no worsening knee or hip pain. No pop or snap with injury. Treatment has consisted of ice provided in the ER. No prior history of significant ankle injury. Pain is 2/10 when sitting. REVIEW OF SYSTEM: HEENT: No dizziness, visual problems, hearing loss, tinnitus. There is no difficulty swallowing and no oral lesions are present. LYMPH: No adenopathy. PULMONARY: No cough, sputum production or hemoptysis. CARDIOVASCULAR: No chest pain, palpitations, or peripheral edema. GASTROINTESTINAL: No diarrhea, constipation, nausea, vomiting, or abdominal pain. GENITOURINARY: No dysuria, frequency, urgency or nocturia. NEUROLOGIC: No weakness, muscle tenderness, epilepsy or history of neurological problems. No history of chronic headaches. MUSCULOSKELETAL: No history of joint tenderness/swelling. Positive history of arthritis and arthralgias. SKIN: No rashes or lesions. PSYCHIATRIC: No history of depression or mental illness. ENDOCRINE: No history of diabetes, thyroid disorders, abnormal hair growth. PAST MEDICAL HISTORY: Supplemental sheet was not completed. Previous surgeries: Splenectomy, hysterectomy, appendectomy, cholecystectomy Medical history: Hypertension, atrial fibrillation, CHF, GERD, osteoarthritis history of pneumonia Current medications: Reviewed and filed in patient's chart Allergies: Penicillin, tetanus Family history: Significant for heart disease and MIs Social history: Retired. . Lives with her . No tobacco use, no EtOH use. PHYSICAL EXAM: Vitals: BP 160/78 temp 36.7 pulse 88 respirations 22 O2 sat 90% on room air General: Frail, disheveled, elderly white female, in obvious discomfort. No acute distress. She is sitting on a bed. Pleasantly confused. Smells of urine. Skin:Warm and dry with fair turgor. No rashes or lesions. No erythema. The patient is not diaphoretic. No abrasions. 2+ edema is present over the right ankle and right foot. She has ecchymosis present through the medial and lateral aspect of the ankle and foot. Musculoskeletal: Right ankle evaluation reveals no pain with palpation across the knee or proximal tibia or fibula. There is pain with palpation over the distal fibula and lateral malleolus and the lateral ligaments. No pain over the medial malleolus or deltoid ligament. Achilles' tendon is palpated to its entirety and found to be intact and without defect. Normal Zavala test. No pain with palpation of the calcaneus, fifth metatarsal base, midfoot, forefoot, or toes. Motor function to the toes is intact and unremarkable. Motor function to the ankle is intact but range of motion is limited by pain. Strength is 4/5 for resisted motion. Neurologic: Gross sensation is intact across all aspects of the foot and ankle via soft touch. Peripheral pulses are 2+. Data: Radiographic images of the ankle were obtained today and were reviewed by me as well as radiology. They are positive for fracture of the distal fibula, nondisplaced, nonangulated. IMPRESSION: Right distal fibular fracture, closed, nondisplaced, initial evaluation PLAN: The patient and her were educated regarding today's findings. Conservative care measures were discussed. She was placed in a well-padded coaptation splint. Neurovascular status was checked before and after splint placement. Patient will be strict nonweightbearing for now. Because of this, she will not be able to be cared for at home by her . He verbalizes that it is already difficult to care for her. She will likely need prison facility placement. Her insurance is not able to do the authorization over the weekend. Because of this, the hospitalist service was consulted for admission. Please see that dictation for final management. She remained stable while in the ED E. Patient repetitively requested to be discharged to home. I did explain to her several times why this was not in her best healthcare interest. Ice and elevate intermittently over the next several days. Lower leg should be elevated at night during sleep. Tylenol every 6 hours as needed for discomfort. Keep the splint dry. Return to the ER for any acute changes. Follow-up with her orthopedist for additional care recommendations. Fracture is nondisplaced at the moment and will likely be treated nonsurgically if it remains this way. Her is aware. Impression & Plan Fracture of distal end of right fibula Please see the hospitalist dictation for final management. Patient remained stable while in the ED. Past Med/Surg History Social History Current Living Situation: Spouse Other Information That Helps Us Care for You: No Feels Safe at Home: Yes Safety Concerns: Feels Safe At This Time Smoking Status: Never smoker Do You Dip or Chew Tobacco: No Second Hand Exposure: No Tobacco Cessation Education Requested by Patient: No Hx Alcohol Use: No Hx Substance Use: No Beliefs That Will Affect Care: None Preferred Language: Somali Communication Ability: Effective Loan Adviser Required: No Results & Data Vital Signs Vital Signs - 24 hr 10/05/18 11:46 10/05/18 12:50 10/05/18 14:52 Temperature 36.3 C L Temperature Source Oral Sepsis Recent Fever Within 48 Hours No Sepsis New/Unexplained Change in Mental Status No Sepsis Action Taken by Nursing No Action Required Pulse Rate 73 Pulse Rate [Left Finger] 69 73 Pulse Rate [Right Brachial] Respiratory Rate 18 20 20 Respiratory Effort / Characteristics Non-Labored Spontaneous Non-Labored Respiratory Depth Normal Normal Respiratory Pattern Regular Blood Pressure 173/92 H Blood Pressure [Left Arm] 148/75 H 173/64 H Blood Pressure [Right Arm] Blood Pressure Mean 119 Blood Pressure Mean [Left Arm] 99 100 Blood Pressure Mean [Right Arm] Blood Pressure Position [Left Arm] Blood Pressure Position [Right Arm] Pulse Oximetry 94 93 94 Oxygen Delivery Method Room Air Room Air Room Air 10/05/18 15:17 10/05/18 17:27 10/05/18 20:10 Temperature 36.7 C Temperature Source Oral Sepsis Recent Fever Within 48 Hours Sepsis New/Unexplained Change in Mental Status Sepsis Action Taken by Nursing Pulse Rate Pulse Rate [Left Finger] Pulse Rate [Right Brachial] 78 88 Respiratory Rate 22 Respiratory Effort / Characteristics Non-Labored Spontaneous Respiratory Depth Shallow Respiratory Pattern Regular Blood Pressure Blood Pressure [Left Arm] 171/75 H Blood Pressure [Right Arm] 160/78 H Blood Pressure Mean Blood Pressure Mean [Left Arm] 107 Blood Pressure Mean [Right Arm] 105 Blood Pressure Position [Left Arm] Lying Blood Pressure Position [Right Arm] Lying Pulse Oximetry 94 90 Oxygen Delivery Method Room Air Room Air Home Medications Current Medication List: was personally reviewed by me Laboratory Data Attestation: I reviewed the patient's lab results. CBC and PRP were obtained. CBC is unremarkable. PRP shows an elevated BUN of 30 with creatinine 1.6. Otherwise unremarkable. Result diagrams: 10/05/18 13:19 10/05/18 13:19 Lab Results 10/05/18 10/05/18 10/05/18 Range/Units 13:19 13:19 13: WBC 8.68 (4.8-10.8) K/uL RBC 4.05 L (4.2-5.4) M/uL Hgb 13.7 (12.0-16.0) g/dL Hct 42.4 (37-47) % MCV 104.7 H (80-100) fL MCH 33.8 (25-34) pg MCHC 32.3 (32-36) g/dL RDW Std Deviation 54.8 H (36.4-46.3) fL RDW Coeff of Son 14.2 (11.5-14.5) % Plt Count 201 (130-400) K/uL MPV 12.3 H (7.4-10.4) fL Immature Gran % (Auto) 0.2 % Neut % (Auto) 58.5 % Lymph % (Auto) 15.7 % Carter % (Auto) 22.5 % Eos % (Auto) 2.9 % Baso % (Auto) 0.2 % Immature Gran # (Auto) 0.02 (0.00-0.02) K/uL Neut # (Auto) 5.08 (1.4-6.5) K/uL Lymph # (Auto) 1.36 (1.2-3.4) K/uL Carter # (Auto) 1.95 H (0.11-0.59) K/uL Eos # (Auto) 0.25 (0-0.5) K/uL Baso # (Auto) 0.02 (0-0.2) K/uL PT 11.0 (9.0-12.0) Seconds INR 1.1 (0.9-1.1) Sodium 137 (136-145) mmol/L Potassium 3.5 (3.5-5.1) mmol/L Chloride 100 (98-107) mmol/L Carbon Dioxide 32 (21-32) mmol/L Anion Gap 5.0 (3-11) BUN 30 H (7-18) mg/dl Creatinine 1.60 H (0.6-1.2) mg/dl Est Cr Clr Drug Dosing Not Reportable Est GFR ( Amer) 32.8 Est GFR (Non-Af Amer) 28.3 BUN/Creatinine Ratio 19.0 (10-20) Glucose 113 H (70-99) mg/dl Calcium 8.6 (8.5-10.1) mg/dl Administered Medications Metoprolol Succinate (Toprol Xl) 75 mg PO BID [facility] Stop: 11/04/18 20:59 Last Admin: 10/05/18 20:24 Dose: 75 mg Ursodiol (Actigall) 300 mg PO BID [facility] Stop: 11/04/18 20:59 Last Admin: 10/05/18 20:23 Dose: 300 mg Blood Pressure Blood Pressure Disposition: elevated BP felt to be situational Discharge Plan Visit Data *Final* Discharge Date/Time: 10/05/18 15:17 Chief Complaint: Foot Injury/Pain Stated Complaint: RIGHT FOOT PAIN ED Provider: Daniel Andrew ED Midlevel Provider: Abdirahman Owusu Discharge Problem: Fracture of distal end of right fibula Patient Disposition: Home - Self-Care Discharge Instructions Interventions: ED Discharge Assessment Last Done: 10/05/18 15:17
--- NOTE | 2018-10-05 12:54 | XRay Report ---
XR ankle RT min 3V routine CLINICAL HISTORY: 88 years-old Female presenting with R ankle pain/swelling after fall. TECHNIQUE: Frontal, mortise, and lateral views the right ankle were obtained. COMPARISON: None. FINDINGS: Osteopenia. Nondisplaced fracture of the distal fibular diaphysis above the level of the syndesmosis. The fracture extends from the lateral cortex proximally to the medial cortex distally. The ankle mor tise remains congruent. Diffuse soft tissue swelling at the ankle. There is no angulation or displace ment evident. The tibia remains intact. IMPRESSION: Nondisplaced distal fibular diaphyseal fracture. Electronically signed by: Boom Mars M.D. 10/05/2018 12:52 PM
[2018-10-05 13:36] LABS: Basophils # (auto) 0.02 K/uL (0-0.2); Basophils % (auto) 0.2 %; Eosinophils # (auto) 0.25 K/uL (0-0.5); Eosinophils % (auto) 2.9 %; Hematocrit (blood only) 42.4 % (37-47); Hemoglobin 13.7 g/dL (12.0-16.0); Immature Granulocytes # (auto) 0.02 K/uL (0.00-0.02); Immature Granulocytes % (auto) 0.2 %; Lymphocytes # (auto) 1.36 K/uL (1.2-3.4); Lymphocytes % (auto) 15.7 %; Mean Corpuscular Hgb Conc 32.3 g/dL (32-36); Mean Corpuscular Volume 104.7 fL (80-100); Mean Platelet Volume 12.3 fL (7.4-10.4); Monocytes # (auto) 1.95 K/uL (0.11-0.59); Monocytes % (auto) 22.5 %; Neutrophils # (auto) 5.08 K/uL (1.4-6.5); Neutrophils % (auto) 58.5 %; Platelet Count 201 K/uL (130-400); RDW Coefficient of Variation 14.2 % (11.5-14.5); RDW Standard Deviation 54.8 fL (36.4-46.3); Red Blood Count 4.05 M/uL (4.2-5.4); White Blood Count 8.68 K/uL (4.8-10.8)
[2018-10-05 13:51] LABS: Blood Urea Nitrogen 30 mg/dl (7-18); Calcium 8.6 mg/dl (8.5-10.1); Carbon Dioxide 32 mmol/L (21-32); Chloride 100 mmol/L (98-107); Est GFR (African American) 32.8; Est GFR (Non-African American) 28.3; Glucose 113 mg/dl (70-99); Potassium 3.5 mmol/L (3.5-5.1); Sodium 137 mmol/L (136-145)
--- NOTE | 2018-10-05 14:30 | Emergency Department Note ---
ED Visit Note Staff note: I have reviewed the Patients chart and have discussed this case with my PA. I generally agree with the ED note and findings. .
--- NOTE | 2018-10-05 14:30 | History & Physical Report ---
Date of Service October 05, 2018 Assessment & Plan (1) Fall: Related as mechanical per Cast in ED Ortho c/s for outpt f/u PT/OT pending CM c/s for possible placement vs HHN Pt preference is for home, although appears to be having difficulty recently (2) Hypertension: continue home meds (3) CHF (congestive heart failure): continue home meds (4) GERD (gastroesophageal reflux disease): continue home meds (5) Gallstone: continue home meds (6) Atrial fibrillation: Listed on problem lists, however denies knowledge of this No anticoagulation Monitor (7) DVT prophylaxis: Heparin for DVT proph for now, however it seems that pt's baseline status is bed bound History of Present Illness Primary Care Provider: PRISCILA Cruz 88 y/o F who was brought to the ED by her for concern about pt's R ankle. is pt's only caregiver. She is fully dependent on him for any sort of movement. He states he was lifting her to her bedside commode when he lost his balance and fell on top of her. He had a difficult time getting off of her. He noted some ankle swelling and pt was having ankle pain, but refused to come to the ED. He states this happened a few days ago. He states that her swelling is better. Pt states that she has no pain now. She states that she feels fine. Pt denies fever, SOB, chest pain, abd pain, n/v/c/d, LE pain or swelling. states that her appetite is poor, but that she does eat and tolerates what she eats. He states that they do not currently have any sort of HHN, but that they have in the past. He brought her to the ED because he was having trouble managing her transfers since this fall. Allergies Allergy/AdvReac Type Severity Reaction Status Date / Time Penicillins Allergy Mild HIVES Verified 10/05/18 13:49 tetanus toxoid, adsorbed Allergy Mild FEVR, N/V Verified 10/05/18 13:49 Home Medications Home Medications Medication Instructions Recorded Confirmed Type Lactobacillus acidophilus 460 mg PO DAILY 10/05/18 10/05/18 History [Acidophilus] cyanocobalamin (vitamin B-12) 1,000 mcg PO DAILY 10/05/18 10/05/18 History [Vitamin B-12] digoxin [Digox] 0.125 mg PO Q2D 10/05/18 10/05/18 History ferrous sulfate 325 mg PO DAILY 10/05/18 10/05/18 History folic acid 1 mg PO DAILY 10/05/18 10/05/18 History furosemide 40 mg PO DAILY 10/05/18 10/05/18 History metoprolol succinate 75 mg PO BID 10/05/18 10/05/18 History pantoprazole 40 mg PO DAILY 10/05/18 10/05/18 History potassium chloride 10 meq PO DAILY 10/05/18 10/05/18 History ursodiol 300 mg PO BID 10/05/18 10/05/18 History ursodiol 300 mg PO BID 10/05/18 10/05/18 History Past Med/Surg History Family History Father Heart attack Brother Heart attack Brother Heart attack Social History Feels Safe at Home: Yes Smoking Status: Never smoker Hx Alcohol Use: No Hx Substance Use: No Preferred Language: Qatari Review of Systems Pertinent positives and negatives reviewed in HPI--all others negative Physical Exam 2 Vital Signs (Past 24 Hours): Last Vital Signs Temp 36.3 C L 10/05/18 11:46 Pulse 69 10/05/18 12:50 Resp 20 10/05/18 12:50 BP 148/75 H 10/05/18 12:50 Pulse Ox 93 10/05/18 12:50 Constitutional: well developed, + thin and well groomed; no acute distress and not disheveled urine odor Eyes: normal visual mtz by confrontation and + anicteric sclerae Neck: normal visual inspection and trachea midline Respiratory: normal respiratory effort, lungs clear to auscultation Cardiovascular: Rate/Rhythm: regular rate and regular rhythm Gastrointestinal (Abdomen): Inspection/Auscultation: abdomen not distended Percussion/Palpation: abdomen soft; abdomen nontender Musculoskeletal: Head/Neck/Chest: normocephalic and head atraumatic L LE negative for edema, peripheral pulses intact R LE has been casted, able to move toes Skin: no rashes, warm and dry Neurologic: awake; not confused Speech / Cognition: normal speech Psychiatric: A+Ox3, euthymic affect Results & Data Diagnostic Findings R distal fibula fx Code Status & VTE Plan Code Status states that CPR is fine but no intubation, feeding tubes, etc at any time VTE Prophylaxis Plan VTE Prophylaxis will be ordered: Yes
[2018-10-05] MEDS ORDERED: ACETAMINOPHEN 325 MG TAB PO PRN (15:49)
[2018-10-05] MEDS ORDERED: MAGNESIUM HYDROXIDE SUSP 30 ML UDC PO PRN (15:49)
[2018-10-05] MEDS ORDERED: ONDANSETRON INJ 2 MG/ML 2 ML VIAL IV PRN (15:49)
[2018-10-05 17:02] LABS: INR 1.1 (0.9-1.1)
[2018-10-05] MEDS: URSODIOL 300 MG CAP PO SCH (20:23)
[2018-10-05] MEDS: METOPROLOL SUCC 25MG EXT REL TAB PO SCH (20:24)
[2018-10-05] MEDS ORDERED: URSODIOL 300 MG CAP PO SCH (21:00)
[2018-10-06] MEDS: HEPARIN SOD 5,000 UNIT/0.5 ML VIAL SQ SCH ×3 (05:35→21:30)
--- NOTE | 2018-10-06 08:58 | Consultation Report ---
DATE OF CONSULTATION: 10/06/2018 CHIEF COMPLAINT: Right ankle injury. HISTORY OF PRESENT ILLNESS: Patient is a very frail elderly 88-year-old female who was admitted through the Emergency Room yesterday with a right ankle fracture. 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 Several days ago, he was lifting her off the bedside commode when he lost his balance and fell on her. She has had ankle pain and some swelling since then. She came to the ER yesterday and were admitted. She has been put in a splint. She denies any pain now. She just says that her pain kind of waxes and wanes a bit. She denies any other aches or pains. Pain is mostly all lateral. Once again no other complaints. PAST MEDICAL HISTORY: Per the admission H and P. PHYSICAL EXAMINATION: VITAL SIGNS: Temperature is 36.6. Stable. GENERAL: Examination shows a frail elderly cachectic female who is lying in bed. She does have a splint on her right lower extremity. Looks to be well aligned. There is no real focal tenderness. She can dorsiflex and plantarflex her toes appropriately. Minimal if any toe swelling. She is neurologically intact. IMAGING: X-rays of the ankle were reviewed from the ER, showed a nondisplaced oblique fibular fracture. She has diffuse osteopenia. There is no tibial fracture. Her ankle mortise is well maintained. ASSESSMENT: An 88-year-old female with a stable right fibular fracture. She is in a splint now. This does not require surgical treatment. This can be treated in a walking boot for 4-6 weeks. We are looking into getting her a high tide walking boot. She is going to weightbear as tolerated in the boot. She just needs to wear the boot for weightbearing activities. I can check her back in 4 weeks. Any orthopedic questions can be directed at me on [phone].
[2018-10-06 09:10] LABS: BUN Creatinine Ratio 20.2 (10-20); Calcium 8.8 mg/dl (8.5-10.1); Creatinine Clr Calc Pharmacy 21.8 ml/min; Est GFR (African American) 36.9; Est GFR (Non-African American) 31.8; Potassium 3.7 mmol/L (3.5-5.1)
[2018-10-06] MEDS: URSODIOL 300 MG CAP PO SCH ×2 (09:31→21:29)
[2018-10-06] MEDS: FERROUS SULFATE 325 MG TAB PO SCH (09:32)
[2018-10-06] MEDS: LACTOBACILLUS ACIDOPHILUS (FLORANEX) TAB PO SCH (09:32)
[2018-10-06] MEDS: FOLIC ACID 1 MG TAB PO SCH (09:32)
[2018-10-06] MEDS: POTASSIUM CHLORIDE 10 MEQ TABCR PO SCH (09:32)
[2018-10-06] MEDS: PANTOprazole 40 MG TAB PO SCH (09:33)
[2018-10-06] MEDS: FUROSEMIDE 40 MG TAB PO SCH (09:33)
[2018-10-06] MEDS: METOPROLOL SUCC 25MG EXT REL TAB PO SCH ×2 (09:33→21:28)
[2018-10-06] MEDS: CYANOCOBALAMIN 500 MCG TABLET (VITAMIN B-12) PO SCH (09:34)
[2018-10-06 09:35] LABS: Folate (Folic Acid) > 24.00 ng/ml (>5.38); Vitamin B12 > 2000 pg/ml (211-911)
[2018-10-06] MEDS ORDERED: DIGOXIN 0.125 MG TAB PO SCH (16:00)
--- NOTE | 2018-10-06 17:00 | Hospitalist Progress Note ---
Date of Service October 06, 2018 Assessment & Plan (1) Fracture of distal end of right fibula: s/p fall during a transfer -Ortho has seen her and recommended walking boot-awaiting Orthotics to provide this -weightbearing as tolerated in High Tide walking boot for 4-6 weeks -f/u with Ortho in 4 weeks-Dr. Giuliano salas -pain control with tylenol prn (2) Fall: Related as mechanical per during a transfer-pt has been nonambulatory for 11 years PT/OT pending confident he ccan continue her care at home, with home health (3) Hypertension: Stable to some elevated BPs, possibly due to anxiety -continue home lasix, Toprol XL 75 bid (4) CHF (congestive heart failure): Chronic combined systolic and diastolic CHF Last ECHO 2017 with EF 45%, diastolic dysfunction, valvular disease -continue lasix, Toprol -is not on ACEI-defer to her primary Mail Order Clerk (5) GERD (gastroesophageal reflux disease): continue home meds of PPI Has a h/o life-threatening GI bleed (6) Atrial fibrillation: Review of inpatient record shows admissions for rapid atrial fibrillation in the past -remains stable, rate controlled here, irreg on exam -continue digoxin and Toprol for rate control -not on AC due to h/o severe GI bleeding previously (7) Valvular heart disease: With at least moderate MR, mild on previous ECHO 2017 -stable -continue f/u with Cardiology (8) History of CVA (cerebrovascular accident): lacunar infarcts noted on MR brain in 1999 in inpatient record. Otherwise , reports multiple "silent strokes" in the past causing her to be nonambulatory-would need to look up outpt chart to see what he is referring to and what other imaging she has had elsewhere to confirm this If true, she should be on ASA or Plavix at a minimum, but perhaps not due to h/ o severe GI bleed (9) Ambulatory dysfunction: due to ?CVAs in the past as above -continue transfers from bed to chair etc. as per with max assist (10) Macrocytic anemia: Hgb stable at 10, MCV 104 B12>2000, Folate> 24 Could be MDS -consider outpt Heme referral if desired as outpt (11) DVT prophylaxis: Heparin for DVT proph for now, however it seems that pt's baseline status is bed bound and will not need after discharge Dispo-awaiting Orthotic and then dc to home with Home Health hopefully tomorrow Subjective Pt has no complaints, just wants to go home. Says "I'm homesick." She denies CP or SOB. Denies pain in her ankle. Discussed her care with her who feels confident he can continue to take care of her himself at home. He reports she has been nonweightbearing since 2006. She had a long h/o falls before that which were initially attributed to OA of the knees, but then he was later told that she had multiple "silent strokes" seen on MRI of the brain which affected her ability to walk. Review of Systems All systems reviewed & are unremarkable except as noted in HPI & below Physical Exam 2 Vital Signs (Past 24 Hours): Last Vital Signs Temp 36.4 C L 10/06/18 14:59 Pulse 82 10/06/18 15:56 Resp 22 10/06/18 14:59 BP 163/78 H 10/06/18 14:59 Pulse Ox 90 10/06/18 14:59 Constitutional: + thin; no acute distress Eyes: PERRL, conjunctivae normal, anicteric sclerae ENMT: external ear and nose normal, oropharynx normal Neck: trachea midline, no thyromegaly Respiratory: normal respiratory effort, lungs clear to auscultation Cardiovascular: Rate/Rhythm: regular rate; + abnormal rhythm (irreg irreg) Extremities: no edema Gastrointestinal (Abdomen): normal bowel sounds, soft, nontender, no hepatosplenomegaly Musculoskeletal: Extremities: + extremities abnormal to inspection (right leg in splint, not removed, able to wiggle toes), no cyanosis and no clubbing Skin: no rashes, warm and dry Neurologic: moves all extremities and awake; no focal motor deficits Psychiatric: Orientation: alert, oriented to person and cooperative; + not oriented to place and + not oriented to time Results & Data Laboratory Results 10/06/18 10/06/18 Range/Units 08:42 08:42 Sodium 138 (136-145) mmol/L Potassium 3.7 (3.5-5.1) mmol/L Chloride 103 (98-107) mmol/L Carbon Dioxide 27 (21-32) mmol/L Anion Gap 8.0 (3-11) BUN 29 H (7-18) mg/dl Creatinine 1.45 H (0.6-1.2) mg/dl Est Cr Clr Drug Dosing 21.8 ml/min Est GFR ( Amer) 36.9 Est GFR (Non-Af Amer) 31.8 BUN/Creatinine Ratio 20.2 H (10-20) Glucose 103 H (70-99) mg/dl Calcium 8.8 (8.5-10.1) mg/dl Vitamin B12 > 2000 H (211-911) pg/ml Folate > 24.00 (>5.38) ng/ml _ (1) Fall Encounter type: subsequent encounter Qualified Code(s): W19.XXXD - Unspecified fall, subsequent encounter (2) Hypertension Hypertension type: essential hypertension Qualified Code(s): I10 - Essential (primary) hypertension (3) CHF (congestive heart failure) Heart failure type: combined systolic and diastolic Heart failure chronicity : chronic Qualified Code(s): I50.42 - Chronic combined systolic (congestive) and diastolic (congestive) heart failure (4) GERD (gastroesophageal reflux disease) Esophagitis presence: esophagitis presence not specified Qualified Code(s): K21.9 - Gastro-esophageal reflux disease without esophagitis (5) Atrial fibrillation Atrial fibrillation type: persistent Qualified Code(s): I48.1 - Persistent atrial fibrillation (6) Fracture of distal end of right fibula Encounter type: initial encounter Fracture healing: Fracture morphology: other fracture Fracture type: closed Open fracture type: Qualified Code(s): S82.831A - Other fracture of upper and lower end of right fibula, initial encounter for closed fracture
[2018-10-07] MEDS: HEPARIN SOD 5,000 UNIT/0.5 ML VIAL SQ SCH ×2 (05:44→13:46)
[2018-10-07] MEDS: URSODIOL 300 MG CAP PO SCH (08:35)
[2018-10-07] MEDS: FERROUS SULFATE 325 MG TAB PO SCH (08:35)
[2018-10-07] MEDS: LACTOBACILLUS ACIDOPHILUS (FLORANEX) TAB PO SCH (08:36)
[2018-10-07] MEDS: POTASSIUM CHLORIDE 10 MEQ TABCR PO SCH (08:37)
[2018-10-07] MEDS: FOLIC ACID 1 MG TAB PO SCH (08:37)
[2018-10-07] MEDS: FUROSEMIDE 40 MG TAB PO SCH (08:39)
[2018-10-07] MEDS: PANTOprazole 40 MG TAB PO SCH (08:40)
[2018-10-07] MEDS: METOPROLOL SUCC 25MG EXT REL TAB PO SCH (08:40)
[2018-10-07] MEDS: CYANOCOBALAMIN 500 MCG TABLET (VITAMIN B-12) PO SCH (08:42)
--- NOTE | 2018-10-07 12:27 | Discharge Summary ---
Date of Service October 07, 2018 Admission HPI Per Admitting Provider 88 y/o F who was brought to the ED by her for concern about pt's R ankle. is pt's only caregiver. She is fully dependent on him for any sort of movement. He states he was lifting her to her bedside commode when he lost his balance and fell on top of her. He had a difficult time getting off of her. He noted some ankle swelling and pt was having ankle pain, but refused to come to the ED. He states this happened a few days ago. He states that her swelling is better. Pt states that she has no pain now. She states that she feels fine. Pt denies fever, SOB, chest pain, abd pain, n/v/c/d, LE pain or swelling. states that her appetite is poor, but that she does eat and tolerates what she eats. He states that they do not currently have any sort of HHN, but that they have in the past. He brought her to the ED because he was having trouble managing her transfers since this fall. Principal Diagnosis Right fibula fracture, Fall Discharge Exam Constitutional + thin; no acute distress Eyes PERRL, conjunctivae normal, anicteric sclerae ENMT external ear and nose normal, oropharynx normal Neck trachea midline, no thyromegaly Respiratory normal respiratory effort, lungs clear to auscultation Cardiovascular Rate/Rhythm: regular rate; + abnormal rhythm (irreg irreg) Extremities: no edema Gastrointestinal (Abdomen) normal bowel sounds, soft, nontender, no hepatosplenomegaly Musculoskeletal Extremities: + extremities abnormal to inspection (right leg inwalking boot, not removed, able to wiggle toes), no cyanosis and no clubbing Skin no rashes, warm and dry Neurologic moves all extremities (can raise legs off bed 4/5 strength, UEs 4/5 strength throughout) and awake; no focal motor deficits Psychiatric Orientation: alert, oriented to person and cooperative; + not oriented to place and + not oriented to time Discharge Data Allergies Allergy/AdvReac Type Severity Reaction Status Date / Time Penicillins Allergy Mild HIVES Verified 10/05/18 13:49 tetanus toxoid, adsorbed Allergy Mild FEVR, N/V Verified 10/05/18 13:49 Consultations 10/05/18 15:49 Consult Case Management - Discharge Planning Routine Consult Orthopedic Surgery Routine Hospital Course (1) Fracture of distal end of right fibula: s/p fall during a transfer -Ortho has seen her and recommended walking boot with weight-bearing exercise- placed prior to discharge -weightbearing as tolerated in [place] walking boot for 4-6 weeks-pt minimally bears weight regardless x 12 years -f/u with Ortho in 4 weeks-Dr. Giuliano Hernandez -pain control with tylenol prn (2) Fall: Related as mechanical per during a transfer-pt has been non- ambulatory for 11 years PT/OT pending confident he can continue her care at home, with home health (3) Hypertension: Stable to some elevated BPs, possibly due to anxiety-improved today -continue home lasix, Toprol XL 75 bid (4) CHF (congestive heart failure): Chronic combined systolic and diastolic CHF Last ECHO 2017 with EF 45%, diastolic dysfunction, valvular disease -continue lasix, Toprol -is not on ACEI-defer to her primary [facility] (5) GERD (gastroesophageal reflux disease): continue home meds of PPI Has a h/o life-threatening GI bleed (6) Atrial fibrillation: Review of inpatient record shows admissions for rapid atrial fibrillation in the past -remains stable, rate controlled here, irreg on exam -continue digoxin and Toprol for rate control -not on AC due to h/o severe GI bleeding previously (7) Valvular heart disease: With at least moderate MR, mild on previous ECHO 2017 -stable -continue f/u with Cardiology (8) History of CVA (cerebrovascular accident): lacunar infarcts noted on MR brain in 1999 in inpatient record. Otherwise , reports multiple "silent strokes" in the past causing her to be nonambulatory- If true, she should be on ASA or Plavix at a minimum, but perhaps not due to h/ o severe GI bleed-defer to PCP (9) Ambulatory dysfunction: due to ?CVAs in the past as above -continue transfers from bed to chair etc. as per with max assist (10) Macrocytic anemia: Hgb stable at 10, MCV 104 B12>2000, Folate> 24 Could be MDS -consider outpt Heme referral if desired as outpt (11) DVT prophylaxis: Heparin for DVT proph was provided Dispo-stable for dc to home with Home Health today Total Time Total Time Spent Total Time Spent (In Minutes): >30 min Total Time Includes: Examination of the Patient, Discharge Planning and Medication Reconciliation Discharge Plan Discharge Items Patient Disposition: Home - Home Health Services Reason For Visit: RIGHT FOOT PAIN Discharge Diagnosis: Right ankle fracture, Fall Condition: Fair Discharge Goals: Decrease discomfort, Diagnostic testing, Improve disease control and Therapeutic intervention Activity: As commented below Activity Comment: Right lower extremity weight bear as tolerated with walking boot on Bathing: No limitations Bathing Comment: Can remove boot for bathing Weightbearing: Right weightbearing Weightbearing Comment: as tolerated in boot, can remove boot for sleep Non-emergency contact: Primary Care Provider and Surgeon Call non-emergency contact if: you have any medication questions, your symptoms worsen, your pain is not controlled, your pain is worsening, your pain is unusual for you and your pain is concerning for you Follow-up/Referrals: Shelly Ordoñez CRNP [Primary Care Provider] - 10/10/18 10:30 am (Please, follow up at [facility] with Shelly FRANCOIS on October 10at 10:30 am. *If you need to change this appointment, call the office at [phone].) Giuliano Hernandez MD [Surgeon] - 11/11/18 9:50 am (Please, follow up with Dr. Giuliano Hernandez (orthopedic physician) on SundayNovember 11 at 9:50 am. *This office is located at [address] [facility] in [place]. If you need to change this appointment, call the office at [phone].) Diet: Heart Healthy Add Provider Instructions: You were admitted with a right fibular (ankle bone) fracture. You were seen by the Orthopedic Surgeon and you do NOT need surgery. You can wear the walking boot for weight-bearing activities, but can remove it for sleep and bathing. Please follow up with the Orthopedic Surgeon in 4 weeks. Please also follow up with your PCP within 1-2 weeks as scheduled for you. Prescriptions: New acetaminophen [Mapap (acetaminophen)] 325 mg Tablet 650 mg PO Q4H PRN (Reason: pain) Qty: 30 RF: 0 Continue furosemide 40 mg tablet 40 mg PO DAILY RF: 0 potassium chloride 10 mEq capsule, extended release 10 meq PO DAILY RF: 0 cyanocobalamin (vitamin B-12) [Vitamin B-12] 1,000 mcg Tablet 1,000 mcg PO DAILY RF: 0 pantoprazole 40 mg tablet,delayed release (DR/EC) 40 mg PO DAILY RF: 0 ferrous sulfate 325 mg (65 mg iron) Tablet 325 mg PO DAILY RF: 0 ursodiol 300 mg Capsule 300 mg PO BID RF: 0 ursodiol 300 mg capsule 300 mg PO BID RF: 0 folic acid 1 mg Tablet 1 mg PO DAILY RF: 0 digoxin [Digox] 125 mcg tablet 0.125 mg PO Q2D RF: 0 metoprolol succinate 25 mg tablet extended release 24 hr 75 mg PO BID RF: 0 Lactobacillus acidophilus [Acidophilus] Capsule 460 mg PO DAILY RF: 0 Stand-Alone Forms: [facility], [facility] Discharge Orders: Discharge Order (Routine); Ordered 10/07/18 Ordered By: Gisela White Admission Data Admit Date/Time: 10/05/18 14:19 Attending Provider: Gisela White Admit Provider: Harper Ochoa Primary Care Provider: Shelly Ordoñez Other Providers: Giuliano Hernandez Service: Surgical Services Other Pending Studies at Discharge: No
== END 2018-10-07 14:21 | disposition home health service (06) | DRG 543 ==
LOC: ED 11:43 → SUATTDRO 14:19 → 3N 14:19